=== PATIENT | male | born 1970 | race Caucasian/White ===

== ENCOUNTER 2017-06-27 00:22 | Inpatient (IN) | payer OTHER ==
[2017-06-27 00:32] VITALS: BMI 30.2
--- NOTE | 2017-06-27 01:01 | ED PDOC ---
Arrival/HPI - General Chief Complaint: GI Problem Time Seen by Provider: 06/27/17 00:35 Historian: Patient - History of Present Illness Narrative History of Present Illness (Text): 06/27/17 00:58 Jhonatan Saunders is a 46 year old male, with no significant past medical history, who presents to the Emergency department complaining of intermittent bright red rectal bleeding for the past week. Patient reports associated weakness and lower abdominal discomfort. Patient states he has not had a colonoscopy. Patient denies any fever, chills, chest pain, shortness of breath, nausea, vomiting, neck pain, headache, dizziness, or any other complaint. Time/Duration: 1 week Symptom Onset: Gradual Symptom Course: Unchanged Activities at Onset: Light Context: Home Past Medical History - Provider Review Nursing Documentation Reviewed: Yes - Psychiatric Hx Substance Use: No Family/Social History - Physician Review Nursing Documentation Reviewed: Yes Family/Social History: Unknown Family HX Smoking Status: Never Smoked Hx Alcohol Use: No Hx Substance Use: No Allergies/Home Meds Allergies/Adverse Reactions: Allergies No Known Allergies Allergy (Verified 06/27/17 00:38) Home Medications: Home Meds Medication Instructions Recorded Confirmed No Known Home Med 06/27/17 06/27/17 Review of Systems - Physician Review All systems were reviewed & negative as marked: Yes - Review of Systems Constitutional: Other (+weakness). absent: Fevers Eyes: Normal ENT: Normal Respiratory: Normal. absent: SOB, Cough Cardiovascular: Normal. absent: Chest Pain Gastrointestinal: Abdominal Pain, Hematochezia. absent: Vomiting Genitourinary Male: Normal. absent: Dysuria, Frequency, Hematuria, Urinary Output Changes Musculoskeletal: Normal. absent: Back Pain, Neck Pain Skin: Normal. absent: Rash Neurological: Normal. absent: Headache, Dizziness Endocrine: Normal Hemo/Lymphatic: Normal Psychiatric: Normal Physical Exam Vital Signs Reviewed: Yes Vital Signs Temp Pulse Resp BP Pulse Ox 06/27/17 00:22 98.8 F 83 17 126/80 100 Temperature: Afebrile Blood Pressure: Normal Pulse: Regular Respiratory Rate: Normal Appearance: Positive for: Well-Appearing, Non-Toxic, Comfortable Pain Distress: None Mental Status: Positive for: Alert and Oriented X 3 - Systems Exam Head: Present: Atraumatic, Normocephalic Pupils: Present: PERRL Extroacular Muscles: Present: EOMI Conjunctiva: Present: Normal Mouth: Present: Moist Mucous Membranes Neck: Present: Normal Range of Motion Respiratory/Chest: Present: Clear to Auscultation, Good Air Exchange. No: Respiratory Distress, Accessory Muscle Use Cardiovascular: Present: Regular Rate and Rhythm, Normal S1, S2. No: Murmurs Abdomen: Present: Normal Bowel Sounds. No: Tenderness, Distention, Peritoneal Signs Rectal: No: Occult Blood (Guaiac positive), Gross Blood, Hemorrhoids, Fissures Back: Present: Normal Inspection Upper Extremity: Present: Normal Inspection. No: Cyanosis, Edema Lower Extremity: Present: Normal Inspection. No: Edema Neurological: Present: GCS=15, CN II-XII Intact, Speech Normal Skin: Present: Warm, Dry, Normal Color. No: Rashes Psychiatric: Present: Alert, Oriented x 3, Normal Insight, Normal Concentration Medical Decision Making ED Course and Treatment: 06/27/17 00:58 Impression: 46 year old male complaining of intermittent rectal bleeding, weakness, and lower abdominal discomfort x 1 week. Differential Diagnosis included but are not limited to: anemia vs. GI bleed Plan: -- Labs, lipase, blood type and screen -- Reassess and disposition Progress Notes: 06/27/17 02:15 06/27/17 02:40 Case discussed with medical sonographer supervisor shuttle preparation, who is aware and agrees with plan. 06/27/17 02:[address] Roberts, who is aware and agrees with plan. Accepts pt in to hospitalist service. Pt will go to [facility] observation for GI hemorrhage. - Lab Interpretations Lab Results: 06/27/17 01:15 06/27/17 01:15 Lab Results 06/27/17 01:15: WBC 5.0, RBC 4.46, Hgb 10.8 L, Hct 35.6 L, MCV 79.8 L, MCH 24.2 L, MCHC 30.3 L, RDW 15.0 H, Plt Count 256, MPV 10.6 06/27/17 01:15: Sodium 141, Potassium 3.7, Chloride 106, Carbon Dioxide 24, Anion Gap 15, BUN 14, Creatinine 1.0, Est GFR ( Amer) > 60, Est GFR (Non- Af Amer) > 60, Random Glucose 100, Calcium 9.3, Total Bilirubin 0.4, AST 26, ALT 30, Alkaline Phosphatase 58, Total Protein 7.0, Albumin 4.3, Globulin 2.8, Albumin/Globulin Ratio 1.5, Lipase 173 06/27/17 01:15: PT 10.1, INR 0.94, APTT 29.2 - Medication Orders Current Medication Orders: Sodium Chloride (Sodium Chloride 0.9%) 1,000 mls @ 100 mls/hr IV .Q10H ZIGGY - Scribe Statement The provider has reviewed the documentation as recorded by the Earline Garcia Provider Scribe Attestation: All medical record entries made by the Scribe were at my direction and personally dictated by me. I have reviewed the chart and agree that the record accurately reflects my personal performance of the history, physical exam, medical decision making, and the department course for this patient. I have also personally directed, reviewed, and agree with the discharge instructions and disposition. Disposition/Present on Arrival - Present on Arrival Any Indicators Present on Arrival: No History of DVT/PE: No History of Uncontrolled Diabetes: No Urinary Catheter: No History of Decub. Ulcer: No History Surgical Site Infection Following: None - Disposition Have Diagnosis and Disposition been Completed?: Yes Diagnosis: Lower GI bleed Disposition: HOSPITALIZED Disposition Time: 02:55 Patient Plan: Observation Patient Problems: Current Active Problems Problem Status Onset Lower GI bleed Acute Condition: STABLE Forms: LIF[employer]ODELER (Nepali)
[2017-06-27 01:43] LABS: HEMATOCRIT 35.6 % (42.0-52.0); MEAN CELL VOLUME 79.8 fl (80.0-105.0); MEAN CORPUSCULAR HEMOGLOBIN 24.2 pg (25.0-35.0)
[2017-06-27 01:44] LABS: ALB/GLOB RATIO 1.5 (1.1-1.8); ALKALINE PHOSPHATASE 58 U/L (38-126); ALT/SGPT 30 U/L (7-56); AST/SGOT 26 U/L (17-59); BILIRUBIN,TOTAL 0.4 mg/dL (0.2-1.3); BLOOD UREA NITROGEN 14 mg/dL (7-21); CALCIUM 9.3 mg/dL (8.4-10.5); CARBON DIOXIDE 24 mmol/L (21-33); CHLORIDE 106 mmol/L (98-107); GFR AFRICAN-AMERICAN > 60; GLUCOSE,RANDOM 100 mg/dL (70-110); LIPASE 173 U/L (23-300); MEAN CORPUSCULAR HGB CONC 30.3 g/dl (31.0-37.0); MEAN PLATELET VOLUME 10.6 fl (7.0-11.0); POTASSIUM 3.7 mmol/L (3.6-5.0); SODIUM 141 mmol/L (132-148)
[2017-06-27 01:49] LABS: INR 0.94 (0.93-1.08); PARTIAL THROMBOPLASTIN TIME 29.2 Seconds (23.7-30.8)
[2017-06-27] MEDS: Sodium Chloride 0.9% 1,000 ML IV SCH ×2 (03:15→16:04)
--- NOTE | 2017-06-27 03:58 | CP.PCM.HP ---
<JOSÉ DE LA TORRE - Last Filed: 06/27/17 03:51> History of Present Illness - History of Present Illness History of Present Illness: José De La Torre, PGY1, H&P for Dr. Roberts: CC: bright red rectal bleeding x1 week 46M with no significant PMH presents for hematochezia x1 week. Pt states that he has a history of constipation and straining, he has been passing bright red blood with stools intermittently, for past 1 year, but since past 1 week, the frequency has increased. It is painless, has no associated abdominal pain, rectal pain, n/v/d, epigastric pain, dizziness. Pt reports some associated weakness, denies f/c, cp, sob, neck pain, h/a, urinary symptoms, leg swelling. In ED, Hgb 10.8 (baseline unknown), started on NS@100. Currently, pt states that there is no active bleeding, last episode at 8 PM (hematochezia). Pt denies chronic NSAID use. Sometimes, he uses tylenol for headaches. PMH: denies PSH: neck surgery x2 (2017-3331) ALl: NKA FH: no hx of colon cancer SH: lives with family. Has no PMD because he cannot afford health insurance. Denies Alcohol, tobacco, drug use. Present on Admission - Present on Admission Any Indicators Present on Admission: No History of DVT/PE: No History of Uncontrolled Diabetes: No Urinary Catheter: No Decubitus Ulcer Present: No History Surgical Site Infection Following: None Review of Systems - Review of Systems All systems: reviewed and no additional remarkable complaints except Review of Systems: as per hpi Past Patient History - Past Social History Smoking Status: Never Smoked - PSYCHIATRIC Hx Substance Use: No - SURGICAL HISTORY Hx Surgeries: No Meds Allergies/Adverse Reactions: Allergies Allergy/AdvReac Type Severity Reaction Status Date / Time No Known Allergies Allergy Verified 06/27/17 00:38 Physical Exam - Constitutional Appears: Non-toxic, No Acute Distress, Older Than Stated Age - Head Exam Head Exam: ATRAUMATIC, NORMOCEPHALIC - Eye Exam Eye Exam: EOMI, PERRL. absent: Conjunctival injection, Scleral icterus Pupil Exam: NORMAL ACCOMODATION, PERRL - ENT Exam ENT Exam: Mucous Membranes Moist - Neck Exam Neck exam: Negative for: Lymphadenopathy, Thyromegaly - Respiratory Exam Respiratory Exam: Clear to Auscultation Bilateral, NORMAL BREATHING PATTERN. absent: Accessory Muscle Use, Rales, Rhonchi, Wheezes - Cardiovascular Exam Cardiovascular Exam: RRR, +S1, +S2. absent: Bradycardia, Tachycardia, Systolic Murmur - GI/Abdominal Exam GI & Abdominal Exam: Normal Bowel Sounds, Soft. absent: Distended, Firm, Hernia , Organomegaly, Rebound, Tenderness - Rectal Exam Rectal Exam: Bloody Stool, NORMAL INSPECTION Additional comments: no fissures, mass/tumor palpated. - Extremities Exam Extremities exam: Positive for: pedal pulses present. Negative for: calf tenderness, pedal edema - Neurological Exam Neurological exam: Alert, Oriented x3 - Psychiatric Exam Psychiatric exam: Normal Mood - Skin Skin Exam: Dry, Warm Results - Vital Signs Recent Vital Signs: Last Vital Signs Temp 98.8 F 06/27/17 00:22 Pulse 79 06/27/17 02:22 Resp 17 06/27/17 02:22 BP 125/82 06/27/17 02:22 Pulse Ox 99 06/27/17 02:22 - Labs Result Diagrams: 06/27/17 01:15 06/27/17 01:15 Assessment & Plan - Assessment and Plan (Free Text) Assessment: 46M with no significant PMH, admitted for lower GI bleed, anemia. Plan: Lower GI bleed: - Admit to Med Surg Obs - NPO, IVF @ 100/h, IV protonix, - Type and crossmatch 2 units prbcs - F/u GI c/s - Stool guaic weakly positive in ED - F/u CBC in AM - HAS BLED score 0. Anemia: - HGb 10.8, baseline unknown, f/u anemia workup DVT PPX: SCDs GI PPX: Protonix IV Discussed with Dr Alejandra De La Torre, PGY1 - Date & Time Date: 06/27/17 Time: 04:05 <Alejandra SHOOK,René - Last Filed: 06/27/17 06:38> Results - Vital Signs Recent Vital Signs: Last Vital Signs Temp 98.7 F 06/27/17 03:50 Pulse 80 06/27/17 03:50 Resp 18 06/27/17 03:50 BP 124/80 06/27/17 03:50 Pulse Ox 99 06/27/17 02:22 - Labs Result Diagrams: 06/27/17 01:15 06/27/17 01:15 Labs: Laboratory Results - last 24 hr 06/27/17 06/27/17 03:49 05:00 Blood Type A POSITIVE Blood Type Confirm A POSITIVE Antibody Screen Negative Crossmatch See Detail BBK History Checked Patient has bt Attending/Attestation - Attestation I have personally seen and examined this patient.: Yes I have fully participated in the care of the patient.: Yes I have reviewed all pertinent clinical information: Yes Notes (Text): -I agree with the above H&P completed by the resident physician with the following additions and/or changes: -The patient is a 46 year old man with no mast medical history who presents with intermittent BRBPR for the past one week. He is anemic with a Hbg=10.8 with no prior labs on record for comparison. He was found to be stool occult blood positive without any evidence of hemorrhoids or gross blood on rectal exam. GI has been consulted for evaluation. The patient will likely require an outpatient scope.
[2017-06-27] MEDS ORDERED: Sodium Chloride 0.9% 500 ML IV STA (05:13)
[2017-06-27 07:51] LABS: IRON 26 ug/dL (45-180)
[2017-06-27] MEDS ORDERED: Iohexol 350 MG/100 ML VIAL ONE (11:15)
--- NOTE | 2017-06-27 12:28 | CT ---
PROCEDURE: CT Abdomen and Pelvis with contrast HISTORY: anemia, COMPARISON: None. TECHNIQUE: Contrast dose: 100 cc of Omni 240 Radiation dose: Total exam DLP = 834 mGy-cm. This CT exam was performed using one or more of the following dose reduction techniques: Automated exposure control, adjustment of the mA and/or kV according to patient size, and/or use of iterative reconstruction technique. FINDINGS: LOWER THORAX: Unremarkable. LIVER: Unremarkable. No gross lesion or ductal dilatation. GALLBLADDER AND BILE DUCTS: Unremarkable. PANCREAS: Unremarkable. No gross lesion or ductal dilatation. SPLEEN: Unremarkable. ADRENALS: Unremarkable. No mass. KIDNEYS AND URETERS: There is a nonobstructing 2 mm stone in the right kidney VASCULATURE: Unremarkable. No aortic aneurysm. BOWEL: Unremarkable. No obstruction. No gross mural thickening. APPENDIX: Normal appendix. PERITONEUM: Unremarkable. No free fluid. No free air. LYMPH NODES: Unremarkable. No enlarged lymph nodes. BLADDER: Unremarkable. REPRODUCTIVE: Unremarkable. BONES: No acute fracture. OTHER FINDINGS: None. IMPRESSION: No acute findings
[2017-06-27 12:35] LABS: FOLATE 11.2 ng/mL
[2017-06-27] MEDS ORDERED: Peg-Electrolyte Oral Soln 4L (Golytely) PO ONE (19:35)
[2017-06-27] MEDS: Hydrocortisone 2.5% Rectal Cream(30 gm) PR SCH (19:54)
[2017-06-28 07:09] LABS: BASO # 0.01 K/mm3 (0.0-2.0); BASO % 0.2 % (0.0-3.0); EOS # 0.2 (0.0-0.7); EOS % 4.6 % (1.5-5.0); GRAN # 2.59 (1.4-6.5); GRAN % 56.6 % (50.0-68.0); HEMATOCRIT 33.9 % (42.0-52.0); LYMPH # 1.4 (1.2-3.4); LYMPH % 31.2 % (22.0-35.0); MEAN CELL VOLUME 79.6 fl (80.0-105.0); MEAN CORPUSCULAR HEMOGLOBIN 24.2 pg (25.0-35.0); MEAN CORPUSCULAR HGB CONC 30.4 g/dl (31.0-37.0); MEAN PLATELET VOLUME 9.8 fl (7.0-11.0); MONO # 0.3 (0.1-0.6); MONO % 7.4 % (1.0-6.0); RED CELL DISTRIBUTION WIDTH 14.8 % (11.5-14.5); WHITE BLOOD COUNT 4.6 10^3/ul (4.5-11.0)
--- NOTE | 2017-06-28 07:52 | CON ---
DATE: 06/27/2017 HISTORY OF PRESENT ILLNESS: This patient was seen and evaluated earlier. Discussed with Dr. Pack, hospitalist and the patient's family was at bedside at the time of examination. This 46-year-old patient with a no significant past medical history, noticed bleeding per rectum 3 to 4 episodes, dark maroon blood and bright red blood per rectum 3 to 4 times a day for the past 1 week. He has occasional lower abdominal discomfort he noticed. A year ago, he had some streaks of blood with bowel movement, nothing like this. He was concerned because of this continuity of the bleeding lasting for more than a week. OTHER PAST MEDICAL HISTORY: Nothing. SURGICAL HISTORY: Significant for neck surgery about twice in 2004 and 2006. ALLERGIES: NO KNOWN DRUG ALLERGIES. FAMILY HISTORY: Noncontributory. SOCIAL HISTORY: Denies alcohol or smoking. REVIEW OF SYSTEMS: Positive as above. All other systems reviewed, negative. PHYSICAL EXAMINATION: GENERAL: The patient is lying on the bed, not in acute distress. VITAL SIGNS: Temperature 97.7, blood pressure 117/80, pulse 79, respirations 20 and O2 saturation 99%. HEENT: Atraumatic. Anicteric. NECK: Supple. HEART: S1 and S2 heard. LUNGS: Bilateral air entry present. ABDOMEN: Soft. There is no mass palpable. No tenderness. EXTREMITIES: No edema. RECTAL: Revealed empty rectum, slightly increased anal sphincter tone. LABORATORY DATA: Hemoglobin 10.8, hematocrit 35.6, WBC 5.0 and platelets 256. Chemistry is essentially unremarkable. B12 level is low, 174. His folate level is normal. Ferritin is low, 6. The patient did have a CT scan of the abdomen and pelvis done with p.o. and IV contrast. Interpreted the report as negative. IMPRESSION: This 46-year-old patient with no significant past medical history, admitted with bleeding per rectum for the past one week, and his hemoglobin is significantly low at 10.8, we do not know the baseline. The patient is also found to have B12 deficiency. Clearly, this patient has a malabsorption with a low iron saturation and B12 level. The concern is bleeding per rectum lasting for more than a week. A differential diagnosis for his bleeding should include internal hemorrhoid, colitis, angiodysplasias and even neoplasia to be considered. Upper gastrointestinal source also should be considered, but it is less likely. RECOMMENDATIONS: We would recommend: 1. Followup of the hemoglobin and hematocrit. 2. Clear liquid diet. 3. Request for a celiac disease profile. Because of the B12 level is low, we will request for intrinsic factor and parietal cell antibody. 4. The patient would benefit from colonoscopy to further evaluate the bleeding and also we will consider upper GI endoscopy and small bowel biopsy in view of this B12 deficiency, rule out any celiac disease to evaluate for any pernicious anemia. Would consider upper gastrointestinal endoscopy and colonoscopy tomorrow if the patient agreeable to stay in the hospital. Otherwise, the patient needs to have followup as an outpatient in the GI clinic to have this endoscopic evaluation done. Thank you very much for allowing us to participate in the care of the patient. We will continue to closely follow up his care and suggest further management based on the clinical course. Reynaldo Frost MD
[2017-06-28 08:02] LABS: ALB/GLOB RATIO 1.5 (1.1-1.8); ALKALINE PHOSPHATASE 59 U/L (38-126); ALT/SGPT 30 U/L (7-56); AST/SGOT 40 U/L (17-59); BILIRUBIN,TOTAL 0.7 mg/dL (0.2-1.3); BLOOD UREA NITROGEN 10 mg/dL (7-21); CALCIUM 9.1 mg/dL (8.4-10.5); CARBON DIOXIDE 27 mmol/L (21-33); CHLORIDE 107 mmol/L (98-107); GFR AFRICAN-AMERICAN > 60; GLUCOSE,RANDOM 94 mg/dL (70-110); POTASSIUM 3.7 mmol/L (3.6-5.0); SODIUM 141 mmol/L (132-148); TOTAL PROTEIN 6.4 g/dL (5.8-8.3)
[2017-06-28] MEDS: Sodium Chloride 0.9% 1,000 ML IV SCH (09:11)
[2017-06-28] MEDS: Hydrocortisone 2.5% Rectal Cream(30 gm) PR SCH (09:12)
--- NOTE | 2017-06-28 11:50 | CP.PCM.PN ---
<JacquelinBakari - Last Filed: 06/28/17 17:58> Subjective - Date & Time of Evaluation Date of Evaluation: 06/28/17 Time of Evaluation: 09:47 - Subjective Subjective: Patient was seen and examined at bedside. The patient is still reporting some abdominal pain located throughout the abdomen and rating the pain a 4/10 in severity. The patient denies any bowel movement since yesterday. The patient began the bowel prep Golytely for the proposed Colonoscopy later on today. The patient was also getting 1 Unit of Venofer. The patient denies any chest pain, shortness of breath, nausea, vomiting, lightheadedness, dizziness, or any other complaints. Objective - Vital Signs/Intake and Output Vital Signs (last 24 hours): Temp Pulse Resp BP Pulse Ox 98.3 F 73 18 115/76 98 06/28/17 08:37 06/28/17 08:37 06/28/17 08:37 06/28/17 08:37 06/28/17 08:37 Intake and Output: 06/28/17 06/28/17 06:59 18:59 Intake Total 2019 Balance 2020 - Medications Medications: Current Medications Cyanocobalamin (Vitamin B12 1000 Mcg Tab) 1,000 mcg PO DAILY [facility] Last Admin: 06/28/17 09:11 Dose: 1,000 mcg Hydrocortisone (Anusol-Hc) 1 gm ID BID ZIGGY Last Admin: 06/28/17 09:12 Dose: 1 appful Sodium Chloride (Sodium Chloride 0.9%) 1,000 mls @ 100 mls/hr IV .Q10H ZIGGY Last Admin: 06/28/17 09:11 Dose: 100 mls/hr Pantoprazole Sodium (Protonix Inj) 40 mg IVP Q12 ZIGGY Last Admin: 06/28/17 09:10 Dose: 40 mg - Labs Labs: 06/28/17 06:53 06/28/17 06:53 PT 10.1 Seconds (9.9-11.8) 06/27/17 01:15 INR 0.94 (0.93-1.08) 06/27/17 01:15 APTT 29.2 Seconds (23.7-30.8) 06/27/17 01:15 - Head Exam Head Exam: ATRAUMATIC, NORMAL INSPECTION, NORMOCEPHALIC - Eye Exam Eye Exam: EOMI, Normal appearance, PERRL Pupil Exam: NORMAL ACCOMODATION, PERRL - ENT Exam ENT Exam: Mucous Membranes Moist - Neck Exam Neck Exam: Normal Inspection - Respiratory Exam Respiratory Exam: Clear to Ausculation Bilateral, NORMAL BREATHING PATTERN. absent: Accessory Muscle Use, Chest Wall Tenderness, Rales, Rhonchi - Cardiovascular Exam Cardiovascular Exam: REGULAR RHYTHM, RRR, +S1, +S2. absent: Gallop, Rubs - GI/Abdominal Exam GI & Abdominal Exam: Soft, Tenderness (noted in all quadrants in abdomen. Very little appreciated.), Normal Bowel Sounds. absent: Guarding, Rigid, Organomegaly - Extremities Exam Extremities Exam: Full ROM. absent: Tenderness - Back Exam Back Exam: NORMAL INSPECTION. absent: paraspinal tenderness - Neurological Exam Neurological Exam: Alert, Awake, CN II-XII Intact, Oriented x3 - Psychiatric Exam Psychiatric exam: Normal Affect, Normal Mood - Skin Skin Exam: Dry, Intact, Normal Color Assessment and Plan - Assessment and Plan (Free Text) Assessment: 46M with no significant PMH, admitted for lower GI bleed, anemia. Plan: Lower GI bleed: - Admit to Med Surg Obs - NPO, IVF @ 100/h, IV protonix, - Type and crossmatch 2 units prbcs - Stool guaic weakly positive in ED - HAS BLED score 0. -GI consult appreciated. Consider Celiac Disease profile pending Colonoscopy report. -Patient began bowel prep (Golytely) for Colonoscopy scheduled for today. F/U with Colonoscopy report. Anemia: - HGb 10.3(down from) 10.8, baseline unknown -Patient given 1 Unit of Venofer. -Will continue to monitor H/H with serial CBC's. DVT PPX: Continue SCDs GI PPX:Continue Protonix IV <Brian Pack - Last Filed: 06/29/17 14:15> Objective - Vital Signs/Intake and Output Vital Signs (last 24 hours): Temp Pulse Resp BP Pulse Ox 98.4 F 84 18 105/64 98 06/29/17 08:24 06/29/17 08:24 06/29/17 08:24 06/29/17 08:24 06/29/17 08:24 - Medications Medications: Current Medications Cyanocobalamin (Vitamin B12 1000 Mcg Tab) 1,000 mcg PO DAILY [facility]IG[facility] Last Admin: 06/29/17 09:04 Dose: 1,000 mcg Hydrocortisone (Anusol-Hc) 1 gm ID BID ZIGGY Last Admin: 06/29/17 09:04 Dose: 1 appful Sodium Chloride (Sodium Chloride 0.9%) 1,000 mls @ 100 mls/hr IV .Q10H ZIGGY Last Admin: 06/28/17 09:11 Dose: 100 mls/hr Pantoprazole Sodium (Protonix Inj) 40 mg IVP Q12 ZIGGY Last Admin: 06/29/17 09:04 Dose: 40 mg - Labs Labs: PT 10.1 Seconds (9.9-11.8) 06/27/17 01:15 INR 0.94 (0.93-1.08) 06/27/17 01:15 APTT 29.2 Seconds (23.7-30.8) 06/27/17 01:15 Attending/Attestation - Attestation I have personally seen and examined this patient.: Yes I have fully participated in the care of the patient.: Yes I have reviewed all pertinent clinical information, including history, physical exam and plan: Yes Notes (Text): 06/29/17 14:09 attending note; Patient seen and examined with resident. Patient is a 46-year-old male admitted with melena and iron deficiency anemia. patient was also found to have B12 deficiency. awaiting Colonoscopy today. addendum; Flexible endoscopy/EGD done by GI Dr. Benoit. Found to have 8 cm rectal mass. Biopsy taken. Oncology/surgery evaluation requested. needs staging. Await pathology results. the possible diagnosis and workup and treatment options discussed with patient in detail.
[2017-06-28] MEDS ORDERED: Propofol 10 mg/ml Inj (20 ML) ONE (16:01)
[2017-06-28] MEDS ORDERED: Sodium Chloride 0.9% 1,000 ML IV SCH (16:15)
--- NOTE | 2017-06-28 22:42 | CP.PCM.CON ---
History of Present Illness - History of Present Illness History of Present Illness: General Surgery Consult Re: Rectal mass HPI: 46M presented for hematochezia x 1 week and he has been passing bright red blood with stools intermittently for 1 year. Pt had a colonoscopy today and was found to have a circumferential rectal mass at ~8cm. Biopsy was taken. Pt reports weakness, unintentional weight loss in the last 5 months, and decreased caliber of stool. Pt never had colonoscopy prior to this. PMH: Denies PSH: neck surgery x2 ([id number]) FH: No hx of colon cancer, Father had "back bumps" removed in his 60s SH: Denies EtOH, tobacco, and drug use. All: NKDA Meds: Denies Review of Systems - Review of Systems All systems: reviewed and no additional remarkable complaints except (as per HPI ) Past Patient History - Past Social History Smoking Status: Never Smoked - CARDIAC Hx Cardiac Disorders: No - PULMONARY Hx Respiratory Disorders: No - NEUROLOGICAL Hx Neurological Disorder: No - HEMATOLOGICAL/ONCOLOGICAL Hx Blood Transfusions: No Hx Blood Transfusion Reaction: No - MUSCULOSKELETAL/RHEUMATOLOGICAL Hx Falls: No - PSYCHIATRIC Hx Substance Use: No - SURGICAL HISTORY Hx Surgeries: No - ANESTHESIA Hx Anesthesia Reactions: No Hx Malignant Hyperthermia: No Meds Home Medications: Home Medication List Medication Instructions Recorded Confirmed Type Cyanocobalamin [Vitamin B12 1000 1,000 mcg PO DAILY #30 tab 06/28/17 Rx mcg Tab] Hydrocortisone 2.5% (Rectal) 1 gm [place] BID #1 tub 06/28/17 Rx [Anusol-Hc] Allergies/Adverse Reactions: Allergies Allergy/AdvReac Type Severity Reaction Status Date / Time No Known Allergies Allergy Verified 06/27/17 00:38 - Medications Medications: Current Medications Cyanocobalamin (Vitamin B12 1000 Mcg Tab) 1,000 mcg PO DAILY [facility] Last Admin: 06/28/17 09:11 Dose: 1,000 mcg Hydrocortisone (Anusol-Hc) 1 gm [place] BID [facility] Last Admin: 06/28/17 09:12 Dose: 1 appful Sodium Chloride (Sodium Chloride 0.9%) 1,000 mls @ 100 mls/hr IV .Q10H [facility] Last Admin: 06/28/17 09:11 Dose: 100 mls/hr Pantoprazole Sodium (Protonix Inj) 40 mg IVP Q12 [facility] Last Admin: 06/28/17 21:27 Dose: 40 mg Physical Exam - Constitutional Appears: Non-toxic, No Acute Distress - Head Exam Head Exam: ATRAUMATIC, NORMOCEPHALIC - Eye Exam Eye Exam: EOMI. absent: Scleral icterus - ENT Exam ENT Exam: Mucous Membranes Moist Additional comments: trachea midline - Neck Exam Neck exam: Positive for: Full Rom - Respiratory Exam Respiratory Exam: NORMAL BREATHING PATTERN. absent: Respiratory Distress - Cardiovascular Exam Cardiovascular Exam: RRR, +S1, +S2 - GI/Abdominal Exam GI & Abdominal Exam: Soft. absent: Distended, Tenderness - Rectal Exam Additional comments: Pt had a difficult time relaxing during exam. Met fleshy resistance around 6- 7cm. upon having pt bearing down, a small space opened but digit was too large to try to pass through. unable to feel prostate - Extremities Exam Extremities exam: Negative for: calf tenderness, pedal edema - Back Exam Back exam: absent: CVA tenderness (L), CVA tenderness (R) - Neurological Exam Neurological exam: Alert, Oriented x3 - Skin Skin Exam: Dry, Warm Results - Vital Signs Recent Vital Signs: Last Vital Signs Temp 98.3 F 06/28/17 17:46 Pulse 80 06/28/17 17:46 Resp 16 06/28/17 17:46 BP 124/82 06/28/17 17:46 Pulse Ox 99 06/28/17 17:46 - Labs Result Diagrams: 06/28/17 06:53 06/28/17 06:53 Labs: Laboratory Results - last 24 hr 06/28/17 06/28/17 06:53 06:53 WBC 4.6 RBC 4.26 Hgb 10.3 L Hct 33.9 L MCV 79.6 L MCH 24.2 L MCHC 30.4 L RDW 14.8 H Plt Count 247 MPV 9.8 Gran % 56.6 Lymph % (Auto) 31.2 [place] % (Auto) 7.4 H Eos % (Auto) 4.6 Baso % (Auto) 0.2 Gran # 2.59 Lymph # 1.4 [place] # 0.3 Eos # 0.2 Baso # 0.01 Sodium 141 Potassium 3.7 Chloride 107 Carbon Dioxide 27 Anion Gap 11 BUN 10 Creatinine 1.0 Est GFR ( Amer) > 60 Est GFR (Non-Af Amer) > 60 Random Glucose 94 Calcium 9.1 Total Bilirubin 0.7 AST 40 ALT 30 Alkaline Phosphatase 59 Total Protein 6.4 Albumin 3.8 Globulin 2.6 Albumin/Globulin Ratio 1.5 Assessment & Plan - Assessment and Plan (Free Text) Assessment: 46M with newly found rectal mass Plan: F/U biopsy results Heme/onc on consult for staging/treatment Surgery possible in future, after treatment if amenable. Will D/W Dr. Alicia Maharaj PGY4
[2017-06-29] MEDS: Hydrocortisone 2.5% Rectal Cream(30 gm) PR SCH ×2 (09:04→18:31)
--- NOTE | 2017-06-29 09:45 | CP.PCM.PN ---
<JacquelinJosefinan - Last Filed: 06/29/17 09:45> Subjective - Date & Time of Evaluation Date of Evaluation: 06/29/17 Time of Evaluation: 07:42 - Subjective Subjective: Patient was seen and examined at bedside. The patient continues to report some LLQ and RLQ pain that doesn't radiate. The patient rates the pain a 5/10 in severity. Per nursing the patient refused blood work this morning. Patient denies any chest pain, shortness of breath, nausea, vomiting, lightheaded, dizziness, or any other complaints. Objective - Vital Signs/Intake and Output Vital Signs (last 24 hours): Temp Pulse Resp BP Pulse Ox 98.4 F 84 18 105/64 98 06/29/17 08:24 06/29/17 08:24 06/29/17 08:24 06/29/17 08:24 06/29/17 08:24 Intake and Output: 06/29/17 06/29/17 06:59 18:59 Intake Total 480 Balance 480 - Medications Medications: Current Medications Cyanocobalamin (Vitamin B12 1000 Mcg Tab) 1,000 mcg PO DAILY [facility] Last Admin: 06/29/17 09:04 Dose: 1,000 mcg Hydrocortisone (Anusol-Hc) 1 gm [place] BID [facility] Last Admin: 06/29/17 09:04 Dose: 1 appful Sodium Chloride (Sodium Chloride 0.9%) 1,000 mls @ 100 mls/hr IV .Q10H [facility] Last Admin: 06/28/17 09:11 Dose: 100 mls/hr Pantoprazole Sodium (Protonix Inj) 40 mg IVP Q12 [facility] Last Admin: 06/29/17 09:04 Dose: 40 mg - Labs Labs: 06/28/17 06:53 06/28/17 06:53 PT 10.1 Seconds (9.9-11.8) 06/27/17 01:15 INR 0.94 (0.93-1.08) 06/27/17 01:15 APTT 29.2 Seconds (23.7-30.8) 06/27/17 01:15 - Head Exam Head Exam: ATRAUMATIC, NORMAL INSPECTION, NORMOCEPHALIC - Eye Exam Eye Exam: EOMI, Normal appearance, PERRL Pupil Exam: NORMAL ACCOMODATION, PERRL - ENT Exam ENT Exam: Mucous Membranes Moist - Neck Exam Neck Exam: Normal Inspection. absent: Tenderness - Respiratory Exam Respiratory Exam: Clear to Ausculation Bilateral, NORMAL BREATHING PATTERN. absent: Accessory Muscle Use, Chest Wall Tenderness, Rales, Rhonchi - Cardiovascular Exam Cardiovascular Exam: REGULAR RHYTHM, RRR, +S1, +S2. absent: Rubs - GI/Abdominal Exam GI & Abdominal Exam: Soft, Tenderness (rlq and llq pain upon palpation.), Normal Bowel Sounds. absent: Rigid, Organomegaly - Extremities Exam Extremities Exam: Full ROM. absent: Tenderness - Back Exam Back Exam: NORMAL INSPECTION. absent: paraspinal tenderness - Neurological Exam Neurological Exam: Alert, Awake, CN II-XII Intact - Psychiatric Exam Psychiatric exam: Normal Affect, Normal Mood. absent: Depressed - Skin Skin Exam: Dry, Intact Assessment and Plan - Assessment and Plan (Free Text) Assessment: 46M with no significant PMH, admitted for lower GI bleed, anemia. Plan: Lower GI bleed: - Admit to Med Surg Obs - NPO, IVF @ 100/h, IV protonix, - Type and crossmatch 2 units prbcs - Stool guaic weakly positive in ED - HAS BLED score 0. -GI consult appreciated. -Colonoscopy showed a rectal mass most likely ca. Heme/Onc consult is pending. Anemia: - HGb 10.3(down from) 10.8, baseline unknown -Patient given 1 Unit of Venofer. -Will continue to monitor H/H with serial CBC's. DVT PPX: Continue SCDs GI PPX:Continue Protonix IV <Brian Pack - Last Filed: 06/30/17 14:44> Objective - Vital Signs/Intake and Output Vital Signs (last 24 hours): Temp Pulse Resp BP Pulse Ox 98.3 F 79 20 117/76 99 06/30/17 10:56 06/30/17 10:56 06/30/17 10:56 06/30/17 10:56 06/30/17 10:56 Intake and Output: 06/30/17 06/30/17 06:59 18:59 Intake Total 600 Balance 600 - Medications Medications: Current Medications Cyanocobalamin (Vitamin B12 1000 Mcg Tab) 1,000 mcg PO DAILY [facility] Last Admin: 06/30/17 09:35 Dose: 1,000 mcg Hydrocortisone (Anusol-Hc) 1 gm [place] BID [facility] Last Admin: 06/30/17 13:36 Dose: Not Given Sodium Chloride (Sodium Chloride 0.9%) 1,000 mls @ 100 mls/hr IV .Q10H [facility] Last Admin: 06/30/17 12:02 Dose: 100 mls/hr Pantoprazole Sodium (Protonix Inj) 40 mg IVP Q12 [facility] Last Admin: 06/30/17 09:34 Dose: 40 mg - Labs Labs: 06/30/17 06:52 06/30/17 08:00 PT 10.1 Seconds (9.9-11.8) 06/27/17 01:15 INR 0.94 (0.93-1.08) 06/27/17 01:15 APTT 29.2 Seconds (23.7-30.8) 06/27/17 01:15 Attending/Attestation - Attestation I have personally seen and examined this patient.: Yes I have fully participated in the care of the patient.: Yes I have reviewed all pertinent clinical information, including history, physical exam and plan: Yes Notes (Text): 06/30/17 14:41 attending note; Patient seen and examined with resident. Patient is a 46-year-old male admitted with melena and iron deficiency anemia. patient was also found to have B12 deficiency. s/p Colonoscopy. Flexible endoscopy/EGD done by GI Dr. Benoit. Found to have 8 cm rectal mass. Oncology evaluation with appreciated. surgery evaluation appreciated . Case discussed with radiation oncologist Dr. Kirkland in detail. Dr. Benoit will do endoscopic ultrasound for staging. MRI ordered. Await pathology results. the possible diagnosis and workup and treatment options discussed with patient in detail.
--- NOTE | 2017-06-29 09:52 | CP.PCM.PN ---
Subjective - Date & Time of Evaluation Date of Evaluation: 06/29/17 Time of Evaluation: 09:49 - Subjective Subjective: General Surgery Progress note for Dr. Vargas PT S&E at bedside. Patient admits to pain in left lower quadrant and right lower quadrant and the feeling of gas. Patient denies F/C, N/V. CP SOB. Objective - Vital Signs/Intake and Output Vital Signs (last 24 hours): Temp Pulse Resp BP Pulse Ox 98.4 F 84 18 105/64 98 06/29/17 08:24 06/29/17 08:24 06/29/17 08:24 06/29/17 08:24 06/29/17 08:24 Intake and Output: 06/29/17 06/29/17 06:59 18:59 Intake Total 480 Balance 480 - Medications Medications: Current Medications Cyanocobalamin (Vitamin B12 1000 Mcg Tab) 1,000 mcg PO DAILY [facility] Last Admin: 06/29/17 09:04 Dose: 1,000 mcg Hydrocortisone (Anusol-Hc) 1 gm [place] BID [facility] Last Admin: 06/29/17 09:04 Dose: 1 appful Sodium Chloride (Sodium Chloride 0.9%) 1,000 mls @ 100 mls/hr IV .Q10H [facility] Last Admin: 06/28/17 09:11 Dose: 100 mls/hr Pantoprazole Sodium (Protonix Inj) 40 mg IVP Q12 [facility] Last Admin: 06/29/17 09:04 Dose: 40 mg - Labs Labs: 06/28/17 06:53 06/28/17 06:53 PT 10.1 Seconds (9.9-11.8) 06/27/17 01:15 INR 0.94 (0.93-1.08) 06/27/17 01:15 APTT 29.2 Seconds (23.7-30.8) 06/27/17 01:15 - Constitutional Appears: Non-toxic - Head Exam Head Exam: NORMAL INSPECTION - Eye Exam Eye Exam: EOMI, Normal appearance - ENT Exam ENT Exam: Mucous Membranes Moist - Neck Exam Neck Exam: Full ROM - Respiratory Exam Respiratory Exam: Clear to Ausculation Bilateral, NORMAL BREATHING PATTERN. absent: Accessory Muscle Use, Respiratory Distress - Cardiovascular Exam Cardiovascular Exam: REGULAR RHYTHM. absent: Bradycardia, Tachycardia - GI/Abdominal Exam GI & Abdominal Exam: Soft, Tenderness. absent: Organomegaly, Pulsatile Mass, Rebound - Neurological Exam Neurological Exam: Alert, Awake, Oriented x3 - Psychiatric Exam Psychiatric exam: Anxious, Normal Affect Additional comments: patient appears to be withdrawn - Skin Skin Exam: Dry, Intact, Normal Color, Warm Assessment and Plan - Assessment and Plan (Free Text) Assessment: 46M with newly found rectal mass Plan: monitor H/Hs c/w medical management f/u Heme/onc recommendations f/u biopsy results consider Surgery in the future, after treatment if amenable. d/w Dr. Alicia Ball, DO PGY1
[2017-06-29] MEDS ORDERED: Iohexol 350 MG/100 ML VIAL ONE (10:56)
--- NOTE | 2017-06-29 11:52 | CP.PCM.CON ---
History of Present Illness - History of Present Illness History of Present Illness: 46 year old male with a history of chronic hematochezia admitted with fatigue and worsening hematochezia, found to have a rectal mass concerning for malignancy. The patient reports to noticing hematchezia about 1 year ago which he described as mild and intermittent. This progressed in the last week to large amounts of blood with straining during bowel movements. The amount of bleeding concerned him and he came to the hospital. Colonoscopy revealed a partially obstructing rectal mass concerning for malignancy. CT chest without contrast and CT abdomen and pelvis with PO + IV contrast did not reveal evidence of distant metastasis. Past medical history: None Past surgical history: Lipoma excision from neck Family history: Father had unknown cancer Social history: Denies tobacco, alcohol, and illicit drug use. Works as a tailor. Allergies: NKA Review of systems: All remaining review of systems including HEENT, cardiovascular, respiratory, gastrointestinal, genitourinary, musculoskeletal, dermatologic, neurologic, and psychiatric are negative unless mentioned in the HPI. Past Patient History - Past Social History Smoking Status: Never Smoked - CARDIAC Hx Cardiac Disorders: No - PULMONARY Hx Respiratory Disorders: No - NEUROLOGICAL Hx Neurological Disorder: No - HEMATOLOGICAL/ONCOLOGICAL Hx Blood Transfusions: No Hx Blood Transfusion Reaction: No - MUSCULOSKELETAL/RHEUMATOLOGICAL Hx Falls: No - PSYCHIATRIC Hx Substance Use: No - SURGICAL HISTORY Hx Surgeries: No - ANESTHESIA Hx Anesthesia Reactions: No Hx Malignant Hyperthermia: No Meds Home Medications: Home Medication List Medication Instructions Recorded Confirmed Type Cyanocobalamin [Vitamin B12 1000 1,000 mcg PO DAILY #30 tab 06/28/17 Rx mcg Tab] Hydrocortisone 2.5% (Rectal) 1 gm [place] BID #1 tub 06/28/17 Rx [Anusol-Hc] Allergies/Adverse Reactions: Allergies Allergy/AdvReac Type Severity Reaction Status Date / Time No Known Allergies Allergy Verified 06/27/17 00:38 - Medications Medications: Current Medications Cyanocobalamin (Vitamin B12 1000 Mcg Tab) 1,000 mcg PO DAILY [facility] Last Admin: 06/29/17 09:04 Dose: 1,000 mcg Hydrocortisone (Anusol-Hc) 1 gm [place] BID [facility] Last Admin: 06/29/17 09:04 Dose: 1 appful Sodium Chloride (Sodium Chloride 0.9%) 1,000 mls @ 100 mls/hr IV .Q10H [facility] Last Admin: 06/28/17 09:11 Dose: 100 mls/hr Pantoprazole Sodium (Protonix Inj) 40 mg IVP Q12 [facility] Last Admin: 06/29/17 09:04 Dose: 40 mg Physical Exam - Head Exam Head Exam: ATRAUMATIC - Eye Exam Eye Exam: Normal appearance - ENT Exam ENT Exam: Mucous Membranes Dry - Respiratory Exam Respiratory Exam: NORMAL BREATHING PATTERN - Cardiovascular Exam Cardiovascular Exam: +S1, +S2 - GI/Abdominal Exam GI & Abdominal Exam: Normal Bowel Sounds - Extremities Exam Extremities exam: Positive for: normal inspection - Psychiatric Exam Psychiatric exam: Normal Affect, Normal Mood - Skin Skin Exam: Warm Results - Vital Signs Recent Vital Signs: Last Vital Signs Temp 98.4 F 06/29/17 08:24 Pulse 84 06/29/17 08:24 Resp 18 06/29/17 08:24 BP 105/64 06/29/17 08:24 Pulse Ox 98 06/29/17 08:24 - Labs Result Diagrams: 06/30/17 06:52 06/30/17 08:00 Labs: Laboratory Results - last 24 hr 06/29/17 10:26 POC Glucose (mg/dL) 186 H Assessment & Plan (1) Anemia Assessment and Plan: B12 and iron deficiency on oral B12 and will start IV Venofer ?GI inflammatory disease causing B12 deficiency chronic GI blood loss from tumor likely causing iron deficiency Status: Acute (2) Rectal mass Assessment and Plan: concerning for malignancy f/u biopsy pelvic MRI +/- rectal EUS to complete staging radiation oncologic evaluation further treatment recommendations based on pathology and staging. Thank you for this interesting consult. Status: Acute
--- NOTE | 2017-06-29 12:33 | CT ---
PROCEDURE: CT Chest without contrast HISTORY: r/o mets COMPARISON: None. TECHNIQUE: Contiguous axial images were obtained through the chest without intravenous contrast enhancement. Sagittal and coronal reconstructions were performed. Radiation dose (DLP): 441 mGy-cm. This CT exam was performed using one or more of the following dose reduction techniques: Automated exposure control, adjustment of the mA and/or kV according to patient size, and/or use of iterative reconstruction technique. FINDINGS: LUNGS: Clear lungs. Visualized airway clear. MEDIASTINUM: Unremarkable thoracic aorta. No aneurysm. Normal sized heart. Main pulmonary artery unremarkable. No vascular congestion. No lymphadenopathy. PLEURA: No pleural fluid. No pneumothorax. BONES: No fracture. No destructive lesion. UPPER ABDOMEN: Grossly unremarkable. OTHER FINDINGS: None. IMPRESSION: Unremarkable non-contrast enhanced CT of the chest. No evidence of metastatic disease
--- NOTE | 2017-06-29 13:28 | CP.PCM.CON ---
History of Present Illness - History of Present Illness History of Present Illness: Mr Saunders is a 46 year old male with a locally advanced rectal cancer. For the past year, he has been having issues with constipation and straining. He thought it was related to his diet. He has also had red blood in his stools which has recently worsened. On admission, he was found to be mildly anemia. A CT of the abdomen and pelvis on June 27, 2017 was negative. On June 28, 2017, he had a colonoscopy which revealed an ulcerated, circumferential rectal mass that was partially obstructed. A biopsy was performed which is pending. Review of Systems - Constitutional Constitutional: Weight Loss - Gastrointestinal Gastrointestinal: Constipation, Cramping, Diarrhea, Hematochezia Past Patient History - Past Social History Smoking Status: Never Smoked Alcohol: None Home Situation {Lives}: With Family - CARDIAC Hx Cardiac Disorders: No - PULMONARY Hx Respiratory Disorders: No - NEUROLOGICAL Hx Neurological Disorder: No - HEMATOLOGICAL/ONCOLOGICAL Hx Blood Transfusions: No Hx Blood Transfusion Reaction: No - MUSCULOSKELETAL/RHEUMATOLOGICAL Hx Falls: No - PSYCHIATRIC Hx Substance Use: No - SURGICAL HISTORY Hx Surgeries: No - ANESTHESIA Hx Anesthesia Reactions: No Hx Malignant Hyperthermia: No Meds Home Medications: Home Medication List Medication Instructions Recorded Confirmed Type Cyanocobalamin [Vitamin B12 1000 1,000 mcg PO DAILY #30 tab 06/28/17 Rx mcg Tab] Hydrocortisone 2.5% (Rectal) 1 gm [place] BID #1 tub 06/28/17 Rx [Anusol-Hc] Allergies/Adverse Reactions: Allergies Allergy/AdvReac Type Severity Reaction Status Date / Time No Known Allergies Allergy Verified 06/27/17 00:38 - Medications Medications: Current Medications Cyanocobalamin (Vitamin B12 1000 Mcg Tab) 1,000 mcg PO DAILY [facility] Last Admin: 06/29/17 09:04 Dose: 1,000 mcg Hydrocortisone (Anusol-Hc) 1 gm [place] BID [facility] Last Admin: 06/29/17 09:04 Dose: 1 appful Sodium Chloride (Sodium Chloride 0.9%) 1,000 mls @ 100 mls/hr IV .Q10H [facility] Last Admin: 06/28/17 09:11 Dose: 100 mls/hr Pantoprazole Sodium (Protonix Inj) 40 mg IVP Q12 [facility] Last Admin: 06/29/17 09:04 Dose: 40 mg Physical Exam - Head Exam Head Exam: NORMAL INSPECTION - Eye Exam Eye Exam: EOMI - Respiratory Exam Respiratory Exam: Clear to Auscultation Bilateral - Cardiovascular Exam Cardiovascular Exam: REGULAR RHYTHM - GI/Abdominal Exam GI & Abdominal Exam: Normal Bowel Sounds - Rectal Exam Additional comments: good sphincter tone. Mucosal tenderness and narrowing 3-4cm from AV Results - Vital Signs Recent Vital Signs: Last Vital Signs Temp 98.4 F 06/29/17 08:24 Pulse 84 06/29/17 08:24 Resp 18 06/29/17 08:24 BP 105/64 06/29/17 08:24 Pulse Ox 98 06/29/17 08:24 - Labs Result Diagrams: 06/28/17 06:53 06/28/17 06:53 Labs: Laboratory Results - last 24 hr 06/29/17 10:26 POC Glucose (mg/dL) 186 H Assessment & Plan - Assessment and Plan (Free Text) Assessment: Mr Saunders is a 46 year old male with a locally advanced rectal cancer. He would most likely benefit from preoperative chemoradiation followed by surgery. He was evaluated by surgery. He will need to complete his staging work-up including an endorectal ultrasound to know the tumor and dayana status of his disease. Also, the EUS will tell us the proximal and distal extent of his tumor. We are waiting the pathology from his biopsy for pathologic confirmation. We spoke to him about the risks and benefits of radiation therapy. For locally advanced disease, there is a benefit to neoadjuvant therapy for locoregional control and survival. If feasible, he will need a CT/ Pet with his radiation simulation for planning purposes. The PET can only be performed as an outpatient. We will schedule his simulation once we have his pathology and staging completed. We will also coordinate his treatment with Dr Denis.
[2017-06-29 14:23] LABS: BASO # 0.01 K/mm3 (0.0-2.0); BASO % 0.2 % (0.0-3.0); EOS % 0.6 % (1.5-5.0); GRAN # 3.74 (1.4-6.5); HEMATOCRIT 36.8 % (42.0-52.0); LYMPH % 20.3 % (22.0-35.0); MEAN CELL VOLUME 79.3 fl (80.0-105.0); MEAN CORPUSCULAR HEMOGLOBIN 24.4 pg (25.0-35.0); MEAN CORPUSCULAR HGB CONC 30.7 g/dl (31.0-37.0); MEAN PLATELET VOLUME 9.7 fl (7.0-11.0); MONO # 0.3 (0.1-0.6); MONO % 5.9 % (1.0-6.0); RED CELL DISTRIBUTION WIDTH 14.7 % (11.5-14.5); WHITE BLOOD COUNT 5.1 10^3/ul (4.5-11.0)
[2017-06-29 14:31] LABS: ALB/GLOB RATIO 1.6 (1.1-1.8); ALKALINE PHOSPHATASE 65 U/L (38-126); ALT/SGPT 25 U/L (7-56); AST/SGOT 21 U/L (17-59); BILIRUBIN,TOTAL 0.5 mg/dL (0.2-1.3); BLOOD UREA NITROGEN 7 mg/dL (7-21); CALCIUM 9.4 mg/dL (8.4-10.5); CARBON DIOXIDE 23 mmol/L (21-33); CHLORIDE 105 mmol/L (98-107); GFR AFRICAN-AMERICAN > 60; GLUCOSE,RANDOM 130 mg/dL (70-110); POTASSIUM 3.5 mmol/L (3.6-5.0); SODIUM 139 mmol/L (132-148)
--- NOTE | 2017-06-29 15:39 | CP.PCM.PN ---
<Jennifer Bowling - Last Filed: 06/29/17 15:37> Subjective - Date & Time of Evaluation Date of Evaluation: 06/29/17 Time of Evaluation: 09:20 - Subjective Subjective: Seen and examined at the bedside earlier today, status post EGD, found to have gastritis biopsies were obtained, flexible sigmoidoscopy done found to have ulcerated rectal obstructing mass lesion 8 cm times into the rectum. The patient denies nausea, vomiting although yesterday he had episode of dizziness and weakness but symptoms resolved, patient did not inform nursing staff. No new complaints this morning, no further reports of bleeding. Son at the bedside Objective - Vital Signs/Intake and Output Vital Signs (last 24 hours): Temp Pulse Resp BP Pulse Ox 98.4 F 84 18 105/64 98 06/29/17 08:24 06/29/17 08:24 06/29/17 08:24 06/29/17 08:24 06/29/17 08:24 - Medications Medications: Current Medications Cyanocobalamin (Vitamin B12 1000 Mcg Tab) 1,000 mcg PO DAILY [facility] Last Admin: 06/29/17 09:04 Dose: 1,000 mcg Hydrocortisone (Anusol-Hc) 1 gm [place] BID [facility] Last Admin: 06/29/17 09:04 Dose: 1 appful Sodium Chloride (Sodium Chloride 0.9%) 1,000 mls @ 100 mls/hr IV .Q10H [facility] Last Admin: 06/28/17 09:11 Dose: 100 mls/hr Pantoprazole Sodium (Protonix Inj) 40 mg IVP Q12 [facility] Last Admin: 06/29/17 09:04 Dose: 40 mg - Labs Labs: 06/29/17 14:08 06/29/17 14:08 PT 10.1 Seconds (9.9-11.8) 06/27/17 01:15 INR 0.94 (0.93-1.08) 06/27/17 01:15 APTT 29.2 Seconds (23.7-30.8) 06/27/17 01:15 - Constitutional Appears: No Acute Distress - Head Exam Head Exam: NORMOCEPHALIC - Eye Exam Eye Exam: Normal appearance. absent: Scleral icterus - ENT Exam ENT Exam: Mucous Membranes Moist - Neck Exam Neck Exam: Normal Inspection - Respiratory Exam Respiratory Exam: Clear to Ausculation Bilateral, NORMAL BREATHING PATTERN. absent: Respiratory Distress - Cardiovascular Exam Cardiovascular Exam: +S1, +S2 - GI/Abdominal Exam GI & Abdominal Exam: Soft, Hyperactive Bowel Sounds. absent: Guarding, Tenderness, Organomegaly, Rebound - Extremities Exam Extremities Exam: Normal Capillary Refill. absent: Calf Tenderness, Pedal Edema - Neurological Exam Neurological Exam: Alert, Awake, Oriented x3 - Skin Skin Exam: Dry, Warm Assessment and Plan - Assessment and Plan (Free Text) Assessment: Assessment: GI bleed Ulcerated obstructing rectal mass lesion Gastritis Rule out celiac disease, rule out H. pylori Vitamin B12 deficiency Plan: Clear liquid diet Continue PPI Follow-up EGD and flexible sigmoidoscopy biopsies Monitor H&H Continue surgical, oncology, radiation oncology follow-up Seen and discussed with Dr. Frost. <Reynaldo Frost V - Last Filed: 06/29/17 23:35> Objective - Vital Signs/Intake and Output Vital Signs (last 24 hours): Temp Pulse Resp BP Pulse Ox 98.1 F 95 H 20 120/77 97 06/29/17 16:41 06/29/17 16:41 06/29/17 16:41 06/29/17 16:41 06/29/17 16:41 Intake and Output: 06/29/17 06/30/17 18:59 06:59 Intake Total 600 Balance 600 - Medications Medications: Current Medications Cyanocobalamin (Vitamin B12 1000 Mcg Tab) 1,000 mcg PO DAILY [facility] Last Admin: 06/29/17 09:04 Dose: 1,000 mcg Hydrocortisone (Anusol-Hc) 1 gm [place] BID [facility] Last Admin: 06/29/17 18:31 Dose: Not Given Sodium Chloride (Sodium Chloride 0.9%) 1,000 mls @ 100 mls/hr IV .Q10H [facility] Last Admin: 06/28/17 09:11 Dose: 100 mls/hr Pantoprazole Sodium (Protonix Inj) 40 mg IVP Q12 [facility] Last Admin: 06/29/17 21:24 Dose: 40 mg - Labs Labs: 06/29/17 14:08 06/29/17 14:08 PT 10.1 Seconds (9.9-11.8) 06/27/17 01:15 INR 0.94 (0.93-1.08) 06/27/17 01:15 APTT 29.2 Seconds (23.7-30.8) 06/27/17 01:15 Attending/Attestation - Attestation I have personally seen and examined this patient.: Yes I have fully participated in the care of the patient.: Yes I have reviewed all pertinent clinical information, including history, physical exam and plan: Yes Notes (Text): this patient was seen and evaluated here earlier. This is an addendum to the GI progress report dictated by Jennifer Bowling APN.patient still on clear liquid diet Abdomen soft no tenderness . Discussed with the . MRI scan of the pelvis has been ordered. Would consider rectal EUS to stage. Final path report is pending. Patient also has B12 deficiency etiology is unclear would request [employer] [employer] IF ab and a celiac disease profile 06/29/17 23:32
[2017-06-29] MEDS ORDERED: Potassium Chloride 20 mEq ER Tab PO ONE (19:14)
[2017-06-30 07:10] LABS: BASO # 0.02 K/mm3 (0.0-2.0); BASO % 0.5 % (0.0-3.0); EOS # 0.2 (0.0-0.7); EOS % 5.8 % (1.5-5.0); GRAN # 2.08 (1.4-6.5); GRAN % 49.9 % (50.0-68.0); HEMATOCRIT 33.2 % (42.0-52.0); LYMPH # 1.4 (1.2-3.4); LYMPH % 33.2 % (22.0-35.0); MEAN CELL VOLUME 79.2 fl (80.0-105.0); MEAN CORPUSCULAR HEMOGLOBIN 24.1 pg (25.0-35.0); MEAN CORPUSCULAR HGB CONC 30.4 g/dl (31.0-37.0); MEAN PLATELET VOLUME 9.5 fl (7.0-11.0); MONO # 0.4 (0.1-0.6); MONO % 10.6 % (1.0-6.0); WHITE BLOOD COUNT 4.2 10^3/ul (4.5-11.0)
[2017-06-30 08:16] LABS: ALB/GLOB RATIO 1.6 (1.1-1.8); ALKALINE PHOSPHATASE 59 U/L (38-126); ALT/SGPT 24 U/L (7-56); AST/SGOT 16 U/L (17-59); BILIRUBIN,TOTAL 0.4 mg/dL (0.2-1.3); BLOOD UREA NITROGEN 5 mg/dL (7-21); CALCIUM 9.2 mg/dL (8.4-10.5); CARBON DIOXIDE 23 mmol/L (21-33); CHLORIDE 108 mmol/L (98-107); GFR AFRICAN-AMERICAN > 60; GLUCOSE,RANDOM 84 mg/dL (70-110); POTASSIUM 4.1 mmol/L (3.6-5.0); SODIUM 141 mmol/L (132-148); TOTAL PROTEIN 5.9 g/dL (5.8-8.3)
[2017-06-30] MEDS ORDERED: Magnesium Citrate Oral SOL (300 ml) PO ONE (08:28)
--- NOTE | 2017-06-30 08:39 | CP.PCM.PN ---
Subjective - Date & Time of Evaluation Date of Evaluation: 06/30/17 Time of Evaluation: 08:35 - Subjective Subjective: General Surgery Progress note for Dr. Vargas PT S&E at bedside. ALONDRA. Patient reports no more episodes of blood in stool. Patient had an episode of dizziness yesterday, but currently is feeling well. Patient has no other complaints. Denies N/V, melena, hematochezia. Per GI: continue PPI, clear liquid diet, f/u EGD Bx and Flexible Sigmoidoscopy Bx, CBCs Objective - Vital Signs/Intake and Output Vital Signs (last 24 hours): Temp Pulse Resp BP Pulse Ox 98.1 F 95 H 20 120/77 97 06/29/17 16:41 06/29/17 16:41 06/29/17 16:41 06/29/17 16:41 06/29/17 16:41 Intake and Output: 06/30/17 06/30/17 06:59 18:59 Intake Total 600 Balance 600 - Medications Medications: Current Medications Cyanocobalamin (Vitamin B12 1000 Mcg Tab) 1,000 mcg PO DAILY [facility] Last Admin: 06/29/17 09:04 Dose: 1,000 mcg Hydrocortisone (Anusol-Hc) 1 gm [place] BID [facility] Last Admin: 06/29/17 18:31 Dose: Not Given Sodium Chloride (Sodium Chloride 0.9%) 1,000 mls @ 100 mls/hr IV .Q10H [facility] Last Admin: 06/28/17 09:11 Dose: 100 mls/hr Pantoprazole Sodium (Protonix Inj) 40 mg IVP Q12 [facility] Last Admin: 06/29/17 21:24 Dose: 40 mg - Labs Labs: 06/30/17 06:52 06/30/17 08:00 PT 10.1 Seconds (9.9-11.8) 06/27/17 01:15 INR 0.94 (0.93-1.08) 06/27/17 01:15 APTT 29.2 Seconds (23.7-30.8) 06/27/17 01:15 - Constitutional Appears: Non-toxic - Head Exam Head Exam: NORMAL INSPECTION - Eye Exam Eye Exam: EOMI, Normal appearance - ENT Exam ENT Exam: Mucous Membranes Moist - Neck Exam Neck Exam: Full ROM, Normal Inspection - Respiratory Exam Respiratory Exam: NORMAL BREATHING PATTERN. absent: Accessory Muscle Use, Respiratory Distress - Cardiovascular Exam Cardiovascular Exam: REGULAR RHYTHM. absent: Bradycardia, Tachycardia - GI/Abdominal Exam GI & Abdominal Exam: Soft, Normal Bowel Sounds. absent: Guarding, Tenderness, Mass, Pulsatile Mass, Rebound - Extremities Exam Extremities Exam: Full ROM - Neurological Exam Neurological Exam: Alert, Awake, Oriented x3 - Psychiatric Exam Psychiatric exam: Normal Affect, Normal Mood - Skin Skin Exam: Dry, Intact, Normal Color, Warm Assessment and Plan - Assessment and Plan (Free Text) Assessment: 46M with newly found rectal mass Plan: Diet: Clear liquid diet monitor H/Hs c/w medical management Continue PPI Follow-up EGD and flexible sigmoidoscopy biopsies Monitor H&H f/u oncology recommendations f/u GI recommendations d/w Dr. Alicia Ball, DO PGY1
[2017-06-30] MEDS: Sodium Chloride 0.9% 1,000 ML IV SCH ×2 (09:52→12:02)
[2017-06-30] MEDS: Hydrocortisone 2.5% Rectal Cream(30 gm) PR SCH ×2 (13:36→18:47)
[2017-06-30] MEDS ORDERED: Gadodiamide 287 MG/ML VIAL (15ML) IV ONE (14:55)
--- NOTE | 2017-06-30 15:46 | CP.PCM.PN ---
<Bakari Roper - Last Filed: 06/30/17 15:50> Subjective - Date & Time of Evaluation Date of Evaluation: 06/30/17 Time of Evaluation: 07:47 - Subjective Subjective: This patient was seen and examined at bedside. The patient denies anymore abdominal pain today and the patient reports having a bowel movement with no blood present. The patient denies any chest pain, shortness of breath, changes in vision, sore throat, nausea, vomiting, or any other complaints. Objective - Vital Signs/Intake and Output Vital Signs (last 24 hours): Temp Pulse Resp BP Pulse Ox 98.3 F 79 20 117/76 99 06/30/17 10:56 06/30/17 10:56 06/30/17 10:56 06/30/17 10:56 06/30/17 10:56 Intake and Output: 06/30/17 06/30/17 06:59 18:59 Intake Total 04210 Output Total 2 Balance 77207 - Medications Medications: Current Medications Cyanocobalamin (Vitamin B12 1000 Mcg Tab) 1,000 mcg PO DAILY [facility] Last Admin: 06/30/17 09:35 Dose: 1,000 mcg Hydrocortisone (Anusol-Hc) 1 gm [place] BID [facility] Last Admin: 06/30/17 13:36 Dose: Not Given Sodium Chloride (Sodium Chloride 0.9%) 1,000 mls @ 100 mls/hr IV .Q10H [facility] Last Admin: 06/30/17 12:02 Dose: 100 mls/hr Pantoprazole Sodium (Protonix Inj) 40 mg IVP Q12 [facility] Last Admin: 06/30/17 09:34 Dose: 40 mg - Labs Labs: 06/30/17 06:52 06/30/17 08:00 PT 10.1 Seconds (9.9-11.8) 06/27/17 01:15 INR 0.94 (0.93-1.08) 06/27/17 01:15 APTT 29.2 Seconds (23.7-30.8) 06/27/17 01:15 - Head Exam Head Exam: ATRAUMATIC, NORMAL INSPECTION, NORMOCEPHALIC - Eye Exam Eye Exam: EOMI, Normal appearance, PERRL Pupil Exam: NORMAL ACCOMODATION, PERRL. absent: Irregular - ENT Exam ENT Exam: Mucous Membranes Moist - Neck Exam Neck Exam: Normal Inspection - Respiratory Exam Respiratory Exam: Clear to Ausculation Bilateral, NORMAL BREATHING PATTERN. absent: Accessory Muscle Use, Chest Wall Tenderness - Cardiovascular Exam Cardiovascular Exam: REGULAR RHYTHM, RRR, +S1, +S2. absent: Rubs - GI/Abdominal Exam GI & Abdominal Exam: Soft, Normal Bowel Sounds. absent: Tenderness - Extremities Exam Extremities Exam: Full ROM, Normal Inspection - Back Exam Back Exam: NORMAL INSPECTION. absent: paraspinal tenderness - Neurological Exam Neurological Exam: Alert, Awake, CN II-XII Intact - Psychiatric Exam Psychiatric exam: Normal Affect, Normal Mood - Skin Skin Exam: Dry, Intact, Normal Color Assessment and Plan - Assessment and Plan (Free Text) Assessment: 46M with no significant PMH, admitted for lower GI bleed, anemia. Plan: Lower GI bleed: - Admit to Med Surg Obs - NPO, IVF @ 100/h, IV protonix, - Type and crossmatch 2 units prbcs - Stool guaic weakly positive in ED - HAS BLED score 0. -GI consult appreciated. -Colonoscopy showed a 8 cm rectal mass most likely ca. Heme/Onc consult is pending. -Endoscopic U/S done today for staging purposes. -MRI ordered. f/w with results. -Pathology results pending. F/u with results. Anemia: - HGb 10.1(down from 10.3), baseline unknown -Patient given 2 Unit of Venofer over the past two days. -Will continue to monitor H/H with serial CBC's. DVT PPX: Continue SCDs GI PPX:Continue Protonix IV <Brian Pack - Last Filed: 06/30/17 17:38> Objective - Vital Signs/Intake and Output Vital Signs (last 24 hours): Temp Pulse Resp BP Pulse Ox 98.3 F 79 20 115/58 L 99 06/30/17 16:00 06/30/17 16:00 06/30/17 16:00 06/30/17 16:00 06/30/17 16:00 Intake and Output: 06/30/17 06/30/17 06:59 18:59 Intake Total 09567 Output Total 2 Balance 06742 - Medications Medications: Current Medications Cyanocobalamin (Vitamin B12 1000 Mcg Tab) 1,000 mcg PO DAILY [facility] Last Admin: 06/30/17 09:35 Dose: 1,000 mcg Hydrocortisone (Anusol-Hc) 1 gm [place] BID [facility] Last Admin: 06/30/17 13:36 Dose: Not Given Sodium Chloride (Sodium Chloride 0.9%) 1,000 mls @ 100 mls/hr IV .Q10H [facility] Last Admin: 06/30/17 12:02 Dose: 100 mls/hr Pantoprazole Sodium (Protonix Inj) 40 mg IVP Q12 [facility] Last Admin: 06/30/17 09:34 Dose: 40 mg - Labs Labs: 06/30/17 06:52 06/30/17 08:00 PT 10.1 Seconds (9.9-11.8) 06/27/17 01:15 INR 0.94 (0.93-1.08) 06/27/17 01:15 APTT 29.2 Seconds (23.7-30.8) 06/27/17 01:15 Attending/Attestation - Attestation I have personally seen and examined this patient.: Yes I have fully participated in the care of the patient.: Yes I have reviewed all pertinent clinical information, including history, physical exam and plan: Yes Notes (Text): 06/30/17 17:34 attending note; Patient seen and examined with resident. Patient is a 46-year-old male admitted with melena and iron deficiency anemia. patient was also found to have B12 deficiency. s/p Colonoscopy. Flexible endoscopy/EGD done by GI Dr. Benoit. Found to have 8 cm rectal mass. adenocarcinoma. Oncology evaluation with appreciated. surgery evaluation appreciated. Case discussed with radiation oncologist Dr. Kirkland in detail. Dr. Benoit will do endoscopic ultrasound for staging. MRI ordered. Possible discharge home tomorrow with close follow-up with oncology/possible radiation oncology and surgery. The diagnosis and workup and treatment options discussed with patient in detail. 06/30/17 17:37
--- NOTE | 2017-06-30 17:50 | MRI ---
PROCEDURE: MRI of the pelvis without and with IV contrast administration. HISTORY: rectal cancer staging COMPARISON: Comparison is made to the previous CT of the abdomen and pelvis dated 06/27/2017 TECHNIQUE: Axial coronal and sagittal MRI images of the pelvis were obtained before and after IV contrast administration. FINDINGS: There is homogeneous enhancing circumferential mass lesion at the rectum approximately 5 centimeter from the anal verge. The mass measures approximately 4.1 x 2.5 centimeter and associated with moderate to severe narrowing of the rectum. There is no evidence of large bowel obstruction. The mass is extending beyond the muscularis propria ( image 25 series 3 and image 18 series 9 ). There is approximately 11 millimeter mesorectal fat in between the mass and the mesorectal fascia. Findings suggestive of T3B rectal cancer. There are mildly enlarged lymph nodes in the adjacent mesial rectal fat. There is 11 millimeter lymph node seen in the left aspect of the mesial rectal fat image 26 series 9 suspicious for local metastasis. No evidence of invasion to the adjacent structures. The prostate is slightly prominent in size measures 4.3 centimeter in the transverse diameter and 3.9 millimeter in the AP diameter. The seminal vesicles are also slightly prominent in size. The urinary bladder is grossly unremarkable. There is no evidence of destructive bony lesion. Heterogeneous bone marrow signal in the visualized osseous structures without evidence of cortical destruction. No evidence of free fluid in the pelvis. The visualized portion of the soft tissue of the pelvis is otherwise unremarkable. IMPRESSION: Approximately 4 centimeter enhancing soft tissue mass lesion at the right aspect of the distal rectum 5 -6 centimeter from the anal verge consistent with the patient's known rectal cancer. The mass extending approximately 1- 2 millimeter beyond the muscularis propria on the right aspect of the rectum. There is 11-12 millimeter mesorectal fat in between the mass and the mesorectal fascia. Findings suggestive of T3 B rectal cancer. Prominent/ slightly mildly enlarged at least 1 lymph node seen adjacent to the tumor measures 11 millimeter ( N1).
[2017-06-30] MEDS ORDERED: Lidocaine 2% Jelly (30 ml) ONE (19:22)
--- NOTE | 2017-06-30 20:29 | MRI ---
EXAM: MR Abdomen Without and With Intravenous Contrast EXAM DATE/TIME: 06/30/2017 5:06 PM CLINICAL HISTORY: 46 years old, male; Condition or disease; Cancer and other: Staging for rectal ca; Additional info: Rectal cancer staging TECHNIQUE: Multiplanar magnetic resonance images of the abdomen without and with intravenous contrast. CONTRAST: 15 mL of Omniscan administered intravenously. COMPARISON: Recent noncontrast abdominal CT of 06/27/2017 FINDINGS: LIMITATIONS: Moderate streak/motion artifact. LOWER THORAX: No evidence of pleural effusions. LIVER: Best seen on image 43 of series 1203, there is a small enhancing liver lesion measuring 8 x 6 mm. This has well-defined margins, and is located in the medial segment of the left lobe anteriorly. Its appears hypervascular. It initially has nodular enhancement, and then fills in. It has a tiny focus of low signal intensity within it centrally. It demonstrates high signal intensity on the T2-weighted images. It is not well seen on T1-weighted images, and is likely isodense to the normal liver parenchyma. No evidence of diffuse liver lesions. GALLBLADDER AND BILE DUCTS: No evidence of pericholecystic fluid. PANCREAS: No evidence of pancreatitis or definite focal pancreatic lesions. SPLEEN: No evidence of splenic lesions. ADRENALS: No evidence of adrenal masses. KIDNEYS AND URETERS: Fluid signal intensity lesion in the right kidney, most compatible with a cyst. This is located in the upper pole, measures 1.6 cm, and is mildly exophytic. STOMACH AND BOWEL: No evidence of bowel obstruction. INTRAPERITONEAL SPACE: No evidence of free fluid. LYMPH NODES: No evidence of pathologic lymphadenopathy. IMPRESSION: - Single small 8 x 6 mm hypervascular liver lesion. Most likely differential considerations include a hemangioma or focal nodular hyperplasia. A solitary hypervascular liver metastasis is considered less likely. Recommend clinical correlation and followup. - See above for remaining findings.
[2017-07-01 08:00] LABS: BASO # 0.02 K/mm3 (0.0-2.0); BASO % 0.5 % (0.0-3.0); EOS # 0.2 (0.0-0.7); EOS % 5.2 % (1.5-5.0); GRAN # 2.34 (1.4-6.5); GRAN % 52.9 % (50.0-68.0); HEMATOCRIT 33.6 % (42.0-52.0); LYMPH # 1.4 (1.2-3.4); LYMPH % 32.1 % (22.0-35.0); MEAN CORPUSCULAR HEMOGLOBIN 24.3 pg (25.0-35.0); MEAN CORPUSCULAR HGB CONC 30.4 g/dl (31.0-37.0); MEAN PLATELET VOLUME 9.7 fl (7.0-11.0); MONO # 0.4 (0.1-0.6); MONO % 9.3 % (1.0-6.0); RED CELL DISTRIBUTION WIDTH 15.1 % (11.5-14.5); WHITE BLOOD COUNT 4.4 10^3/ul (4.5-11.0)
[2017-07-01 08:06] LABS: ALB/GLOB RATIO 1.5 (1.1-1.8); ALKALINE PHOSPHATASE 59 U/L (38-126); ALT/SGPT 32 U/L (7-56); AST/SGOT 19 U/L (17-59); BILIRUBIN,TOTAL 0.5 mg/dL (0.2-1.3); BLOOD UREA NITROGEN 5 mg/dL (7-21); CALCIUM 9.1 mg/dL (8.4-10.5); CARBON DIOXIDE 26 mmol/L (21-33); CHLORIDE 106 mmol/L (98-107); GFR AFRICAN-AMERICAN > 60; GLUCOSE,RANDOM 91 mg/dL (70-110); POTASSIUM 3.9 mmol/L (3.6-5.0); SODIUM 141 mmol/L (132-148); TOTAL PROTEIN 6.3 g/dL (5.8-8.3)
[2017-07-01] MEDS: Hydrocortisone 2.5% Rectal Cream(30 gm) PR SCH ×2 (09:26→17:13)
[2017-07-01] MEDS: Sodium Chloride 0.9% 1,000 ML IV SCH ×2 (09:26→21:30)
--- NOTE | 2017-07-01 10:33 | CP.PCM.PN ---
Subjective - Date & Time of Evaluation Date of Evaluation: 07/01/17 Time of Evaluation: 10:30 - Subjective Subjective: SURGERY NOTE FOR DR. ZULUAGA 46M seen and examined at bedside. ALONDRA. Diagnosis and workup results discussed with patient. Objective - Vital Signs/Intake and Output Vital Signs (last 24 hours): Temp Pulse Resp BP Pulse Ox 97.8 F 84 20 105/72 97 07/01/17 08:50 07/01/17 08:50 07/01/17 08:50 07/01/17 08:50 07/01/17 08:50 Intake and Output: 07/01/17 07/01/17 06:59 18:59 Intake Total 1800 120 Balance 1800 120 - Medications Medications: Current Medications Cyanocobalamin (Vitamin B12 1000 Mcg Tab) 1,000 mcg PO DAILY [facility] Last Admin: 07/01/17 09:27 Dose: 1,000 mcg Hydrocortisone (Anusol-Hc) 1 gm [place] BID [facility] Last Admin: 07/01/17 09:26 Dose: 1 appful Sodium Chloride (Sodium Chloride 0.9%) 1,000 mls @ 100 mls/hr IV .Q10H [facility] Last Admin: 07/01/17 09:26 Dose: 100 mls/hr Pantoprazole Sodium (Protonix Inj) 40 mg IVP Q12 [facility] Last Admin: 07/01/17 09:26 Dose: 40 mg - Labs Labs: 07/01/17 07:40 07/01/17 07:40 PT 10.1 Seconds (9.9-11.8) 06/27/17 01:15 INR 0.94 (0.93-1.08) 06/27/17 01:15 APTT 29.2 Seconds (23.7-30.8) 06/27/17 01:15 - Constitutional Appears: Non-toxic, No Acute Distress - Respiratory Exam Respiratory Exam: Clear to Ausculation Bilateral, NORMAL BREATHING PATTERN - Cardiovascular Exam Cardiovascular Exam: REGULAR RHYTHM, +S1, +S2 - GI/Abdominal Exam GI & Abdominal Exam: Soft. absent: Distended, Firm, Guarding, Rigid, Tenderness - Neurological Exam Neurological Exam: Alert, Awake Assessment and Plan - Assessment and Plan (Free Text) Assessment: 46M with rectal cancer, Adenocarcinoma, 5-6cm from anal verge, T3bN1 Plan: - Recommend Oncology follow up for chemotherapy/radiation - Patient will need future surgical operation upon completion of XRT/Chemo therapy Discussed with Dr. Alicia Ravi, PGY2
[2017-07-01 14:49] LABS: PARIETAL CELL AB SCREEN Negative (Negative)
--- NOTE | 2017-07-01 16:33 | CP.PCM.PN ---
<Jennifer Bowling - Last Filed: 07/01/17 19:04> Subjective - Date & Time of Evaluation Date of Evaluation: 07/01/17 Time of Evaluation: 10:30 - Subjective Subjective: Seen and examined at the bedside earlier today, the chart was reviewed. Patient had rectal EUS yesterday found stage uT3, rectal biopsies revealed adenocarcinoma, moderately differentiated. He also went for abdominal MRI and pelvis MRI, reports were reviewed. Patient with no new complaints. at bedside. They are aware of findings. Gastric biopsies positive for H. pylori, endoscopy biopsy pathology reviewed. Objective - Vital Signs/Intake and Output Vital Signs (last 24 hours): Temp Pulse Resp BP Pulse Ox 97.8 F 84 20 105/72 97 07/01/17 08:50 07/01/17 08:50 07/01/17 08:50 07/01/17 08:50 07/01/17 08:50 Intake and Output: 07/01/17 07/01/17 06:59 18:59 Intake Total 1800 480 Balance 1800 480 - Medications Medications: Current Medications Cyanocobalamin (Vitamin B12 1000 Mcg Tab) 1,000 mcg PO DAILY [facility] Last Admin: 07/01/17 09:27 Dose: 1,000 mcg Hydrocortisone (Anusol-Hc) 1 gm [place] BID [facility] Last Admin: 07/01/17 09:26 Dose: 1 appful Sodium Chloride (Sodium Chloride 0.9%) 1,000 mls @ 100 mls/hr IV .Q10H [facility] Last Admin: 07/01/17 09:26 Dose: 100 mls/hr Pantoprazole Sodium (Protonix Inj) 40 mg IVP Q12 [facility] Last Admin: 07/01/17 09:26 Dose: 40 mg - Labs Labs: 07/01/17 07:40 07/01/17 07:40 PT 10.1 Seconds (9.9-11.8) 06/27/17 01:15 INR 0.94 (0.93-1.08) 06/27/17 01:15 APTT 29.2 Seconds (23.7-30.8) 06/27/17 01:15 - Constitutional Appears: No Acute Distress - Head Exam Head Exam: NORMOCEPHALIC - Eye Exam Eye Exam: Normal appearance. absent: Scleral icterus - ENT Exam ENT Exam: Mucous Membranes Moist - Neck Exam Neck Exam: Normal Inspection - Respiratory Exam Respiratory Exam: Clear to Ausculation Bilateral, NORMAL BREATHING PATTERN. absent: Respiratory Distress - Cardiovascular Exam Cardiovascular Exam: +S1, +S2 - GI/Abdominal Exam GI & Abdominal Exam: Soft, Hyperactive Bowel Sounds. absent: Guarding, Tenderness, Rebound - Extremities Exam Extremities Exam: Normal Capillary Refill. absent: Calf Tenderness, Pedal Edema - Neurological Exam Neurological Exam: Alert, Awake, Oriented x3 - Skin Skin Exam: Dry, Warm Assessment and Plan - Assessment and Plan (Free Text) Assessment: Assessment: Rectal adenocarcinoma, moderately differentiated H pylori gastritis Vitamin B12 deficiency Plan: Clear liquid diet Continue PPI can consider treating Hpylori electively likely plan is surgical intervention after radiation and chemotherapy as per surgical, oncology, radiation oncology team Seen and discussed with Dr. Frost. <Reynaldo Frost V - Last Filed: 07/01/17 22:56> Objective - Vital Signs/Intake and Output Vital Signs (last 24 hours): Temp Pulse Resp BP Pulse Ox 98.5 F 87 20 119/75 98 07/01/17 17:00 07/01/17 17:00 07/01/17 17:00 07/01/17 17:00 07/01/17 17:00 Intake and Output: 07/01/17 07/02/17 18:59 06:59 Intake Total 480 1820 Balance 480 1820 - Medications Medications: Current Medications Cyanocobalamin (Vitamin B12 1000 Mcg Tab) 1,000 mcg PO DAILY [facility] Last Admin: 07/01/17 09:27 Dose: 1,000 mcg Hydrocortisone (Anusol-Hc) 1 gm [place] BID [facility] Last Admin: 07/01/17 17:13 Dose: 1 appful Sodium Chloride (Sodium Chloride 0.9%) 1,000 mls @ 100 mls/hr IV .Q10H [facility] Last Admin: 07/01/17 09:26 Dose: 100 mls/hr Pantoprazole Sodium (Protonix Inj) 40 mg IVP Q12 [facility] Last Admin: 07/01/17 21:50 Dose: 40 mg - Labs Labs: 07/01/17 07:40 07/01/17 07:40 PT 10.1 Seconds (9.9-11.8) 06/27/17 01:15 INR 0.94 (0.93-1.08) 06/27/17 01:15 APTT 29.2 Seconds (23.7-30.8) 06/27/17 01:15 Attending/Attestation - Attestation I have personally seen and examined this patient.: Yes I have fully participated in the care of the patient.: Yes I have reviewed all pertinent clinical information, including history, physical exam and plan: Yes Notes (Text): This is an addendum to GI progress report dictated by Jennifer Bowling APN.The patient was seen and examined earlier. Medical records, lab studies, imagings were reviewed. Last 24 hours events reviewed. Agreed with the above treatment plan as outlined in Jennifer Bowling NP's notes the with the addition of the following patient still on a clear liquid diet Abdomen soft no tenderness EUS revealed a T3 lesion Plan Radiation chemotherapy followed by surgery Selective treatment for H. pylori Patient has near obstructing symptoms would cautiously avoid the diet with stool softeners hopefully the rectal lumen opens up following radiation chemotherapy Diet has been increased to full liquid diet. Consider increasing to low residue diet with stool softeners should the patient develop obstruction would be needed colostomy 07/01/17 22:53
--- NOTE | 2017-07-02 01:30 | CP.PCM.PN ---
Subjective - Date & Time of Evaluation Date of Evaluation: 07/01/17 Time of Evaluation: 16:00 - Subjective Subjective: No complaints. Objective - Vital Signs/Intake and Output Vital Signs (last 24 hours): Temp Pulse Resp BP Pulse Ox 98.5 F 87 20 119/75 98 07/01/17 17:00 07/01/17 17:00 07/01/17 17:00 07/01/17 17:00 07/01/17 17:00 Intake and Output: 07/01/17 07/02/17 18:59 06:59 Intake Total 480 1820 Balance 480 1820 - Medications Medications: Current Medications Cyanocobalamin (Vitamin B12 1000 Mcg Tab) 1,000 mcg PO DAILY [facility] Last Admin: 07/01/17 09:27 Dose: 1,000 mcg Hydrocortisone (Anusol-Hc) [address] BID [facility] Last Admin: 07/01/17 17:13 Dose: 1 appful Sodium Chloride (Sodium Chloride 0.9%) 1,000 mls @ 100 mls/hr IV .Q10H [facility] Last Admin: 07/01/17 09:26 Dose: 100 mls/hr Pantoprazole Sodium (Protonix Inj) 40 mg IVP Q12 [facility] Last Admin: 07/01/17 21:50 Dose: 40 mg - Labs Labs: 07/01/17 07:40 07/01/17 07:40 PT 10.1 Seconds (9.9-11.8) 06/27/17 01:15 INR 0.94 (0.93-1.08) 06/27/17 01:15 APTT 29.2 Seconds (23.7-30.8) 06/27/17 01:15 - Head Exam Head Exam: ATRAUMATIC - Eye Exam Eye Exam: Normal appearance - ENT Exam ENT Exam: Mucous Membranes Dry - Respiratory Exam Respiratory Exam: NORMAL BREATHING PATTERN - Cardiovascular Exam Cardiovascular Exam: +S1, +S2 - GI/Abdominal Exam GI & Abdominal Exam: Normal Bowel Sounds - Extremities Exam Extremities Exam: Normal Inspection Assessment and Plan (1) Anemia Assessment & Plan: iron and b12 deficiency on IV Venofer Status: Acute (2) Rectal mass Assessment & Plan: T3N1 by MRI would benefit from outpatient neoadjuvant chemoradiation prior to surgery outpatient f/u with me to initiate Xeloda Status: Acute
[2017-07-02 08:26] VITALS: BP 111/75; PULSE 84; RESP 18; TEMP 97.3; O2SAT 100
--- NOTE | 2017-07-02 08:36 | CP.PCM.PN ---
Subjective - Date & Time of Evaluation Date of Evaluation: 07/02/17 Time of Evaluation: 08:33 - Subjective Subjective: General Surgery Progress note for Dr. Vargas PT S&E at bedside. Patient states he would like to go home today. No complaints overnight. Patient is still on Clear liquid diet. Patient tolerating well. Patient denies F/C, N/V. Objective - Vital Signs/Intake and Output Vital Signs (last 24 hours): Temp Pulse Resp BP Pulse Ox 97.3 F L 84 18 111/75 100 07/02/17 08:25 07/02/17 08:25 07/02/17 08:25 07/02/17 08:25 07/02/17 08:25 Intake and Output: 07/02/17 07/02/17 06:59 18:59 Intake Total 1820 820 Balance 1820 820 - Medications Medications: Current Medications Cyanocobalamin (Vitamin B12 1000 Mcg Tab) 1,000 mcg PO DAILY [facility] Last Admin: 07/01/17 09:27 Dose: 1,000 mcg Hydrocortisone (Anusol-Hc) 1 gm MD BID [facility] Last Admin: 07/01/17 17:13 Dose: 1 appful Sodium Chloride (Sodium Chloride 0.9%) 1,000 mls @ 100 mls/hr IV .Q10H [facility] Last Admin: 07/01/17 21:30 Dose: 100 mls/hr Iron Sucrose 200 mg/ Sodium (Chloride) 110 mls @ 110 mls/hr IVPB ONCE ONE Stop: 07/02/17 10:59 Pantoprazole Sodium (Protonix Inj) 40 mg IVP Q12 [facility] Last Admin: 07/01/17 21:50 Dose: 40 mg - Labs Labs: 07/01/17 07:40 07/01/17 07:40 PT 10.1 Seconds (9.9-11.8) 06/27/17 01:15 INR 0.94 (0.93-1.08) 06/27/17 01:15 APTT 29.2 Seconds (23.7-30.8) 06/27/17 01:15 - Constitutional Appears: No Acute Distress - Head Exam Head Exam: NORMAL INSPECTION - Eye Exam Eye Exam: EOMI, Normal appearance - ENT Exam ENT Exam: Mucous Membranes Moist - Neck Exam Neck Exam: Full ROM - Respiratory Exam Respiratory Exam: Clear to Ausculation Bilateral. absent: Accessory Muscle Use , Respiratory Distress - Cardiovascular Exam Cardiovascular Exam: REGULAR RHYTHM. absent: Bradycardia, Tachycardia - GI/Abdominal Exam GI & Abdominal Exam: Soft, Normal Bowel Sounds. absent: Tenderness - Extremities Exam Extremities Exam: Full ROM, Normal Inspection. absent: Pedal Edema - Neurological Exam Neurological Exam: Alert, Awake, Normal Gait - Psychiatric Exam Psychiatric exam: Normal Affect, Normal Mood - Skin Skin Exam: Dry, Intact, Normal Color, Warm Assessment and Plan - Assessment and Plan (Free Text) Assessment: 46M with rectal cancer, Adenocarcinoma, 5-6cm from anal verge, T3bN1 Plan: recommend Oncology follow up for chemotherapy/radiation consider surgical operation in the future to resect the adenocarcinoma after completing Chemo/XRT d/w Dr. Alicia Ball, DO PGY1
[2017-07-02 09:02] LABS: BASO # 0.02 K/mm3 (0.0-2.0); BASO % 0.5 % (0.0-3.0); EOS # 0.2 (0.0-0.7); EOS % 3.7 % (1.5-5.0); GRAN # 2.53 (1.4-6.5); GRAN % 61.9 % (50.0-68.0); HEMATOCRIT 35.9 % (42.0-52.0); LYMPH # 1.1 (1.2-3.4); LYMPH % 27.1 % (22.0-35.0); MEAN CELL VOLUME 80.1 fl (80.0-105.0); MEAN CORPUSCULAR HEMOGLOBIN 24.3 pg (25.0-35.0); MEAN CORPUSCULAR HGB CONC 30.4 g/dl (31.0-37.0); MEAN PLATELET VOLUME 9.8 fl (7.0-11.0); MONO # 0.3 (0.1-0.6); MONO % 6.8 % (1.0-6.0); RED CELL DISTRIBUTION WIDTH 15.8 % (11.5-14.5); WHITE BLOOD COUNT 4.1 10^3/ul (4.5-11.0)
[2017-07-02 09:07] LABS: ALB/GLOB RATIO 1.6 (1.1-1.8); ALKALINE PHOSPHATASE 62 U/L (38-126); ALT/SGPT 33 U/L (7-56); AST/SGOT 19 U/L (17-59); BILIRUBIN,TOTAL 0.5 mg/dL (0.2-1.3); BLOOD UREA NITROGEN 6 mg/dL (7-21); CALCIUM 9.5 mg/dL (8.4-10.5); CARBON DIOXIDE 26 mmol/L (21-33); CHLORIDE 106 mmol/L (98-107); GFR AFRICAN-AMERICAN > 60; GLUCOSE,RANDOM 96 mg/dL (70-110); POTASSIUM 4.2 mmol/L (3.6-5.0); SODIUM 142 mmol/L (132-148)
[2017-07-02] MEDS: Hydrocortisone 2.5% Rectal Cream(30 gm) PR SCH (10:10)
[2017-07-02] MEDS ORDERED: POLYETHYLENE GLYCOL 3350 17 GM/Dose PACKET PO SCH (13:30)
--- NOTE | 2017-07-02 13:35 | CP.PCM.PN ---
Subjective - Date & Time of Evaluation Date of Evaluation: 07/02/17 Time of Evaluation: 10:35 - Subjective Subjective: Seen and examined at the bedside earlier today, the was there, patient denies any recent bleeding per rectum or abdominal pain. Tolerating the full liquid diet, denies nausea, vomiting, fever, chills or shortness of breath. No new complaints. Patient has not had BM since colonoscopy. Objective - Vital Signs/Intake and Output Vital Signs (last 24 hours): Temp Pulse Resp BP Pulse Ox 97.3 F L 84 18 111/75 100 07/02/17 08:25 07/02/17 08:25 07/02/17 08:25 07/02/17 08:25 07/02/17 08:25 Intake and Output: 07/02/17 07/02/17 06:59 18:59 Intake Total 1820 820 Balance 1820 820 - Medications Medications: Current Medications Cyanocobalamin (Vitamin B12 1000 Mcg Tab) 1,000 mcg PO DAILY [facility] Last Admin: 07/02/17 10:14 Dose: 1,000 mcg Hydrocortisone (Anusol-Hc) 1 gm MS BID [facility] Last Admin: 07/02/17 10:10 Dose: 1 appful Sodium Chloride (Sodium Chloride 0.9%) 1,000 mls @ 100 mls/hr IV .Q10H [facility] Last Admin: 07/01/17 21:30 Dose: 100 mls/hr Pantoprazole Sodium (Protonix Inj) 40 mg IVP Q12 [facility] Last Admin: 07/02/17 10:10 Dose: 40 mg - Labs Labs: 07/02/17 08:49 07/02/17 08:49 PT 10.1 Seconds (9.9-11.8) 06/27/17 01:15 INR 0.94 (0.93-1.08) 06/27/17 01:15 APTT 29.2 Seconds (23.7-30.8) 06/27/17 01:15 - Constitutional Appears: No Acute Distress - Head Exam Head Exam: NORMOCEPHALIC - Eye Exam Eye Exam: Normal appearance. absent: Scleral icterus - ENT Exam ENT Exam: Mucous Membranes Moist - Neck Exam Neck Exam: Normal Inspection - Respiratory Exam Respiratory Exam: Clear to Ausculation Bilateral, NORMAL BREATHING PATTERN. absent: Respiratory Distress - Cardiovascular Exam Cardiovascular Exam: +S1, +S2 - GI/Abdominal Exam GI & Abdominal Exam: Soft, Normal Bowel Sounds. absent: Guarding, Tenderness, Rebound - Extremities Exam Extremities Exam: Normal Capillary Refill. absent: Calf Tenderness, Pedal Edema - Neurological Exam Neurological Exam: Alert, Awake, Oriented x3 Assessment and Plan - Assessment and Plan (Free Text) Assessment: Assessment: Rectal adenocarcinoma, moderately differentiated H pylori gastritis Vitamin B12 deficiency 8 x 6 mm hypervascular liver lesion, differential hemangioma or focal nodular hyperplasia Plan: advance diet to soft low residual Give MiraLAX daily Continue PPI can consider treating Hpylori electively patient for outpatient chemotherapy and radiation, surgical intervention posttreatment, as per oncology, radiation and surgical team Seen and discussed with Dr. Frost.
[2017-07-02] MEDS: Sodium Chloride 0.9% 1,000 ML IV SCH (14:57)
--- NOTE | 2017-07-02 15:32 | CP.PCM.DIS ---
Provider - Provider Date of Admission: 06/29/17 10:19 Attending physician: Brian Pack MD Time Spent in preparation of Discharge (in minutes): 40 Hospital Course - Lab Results Lab Results: Most Recent Lab Values WBC 4.1 10^3/ul (4.5-11.0) L 07/02/17 08:49 RBC 4.48 10^6/uL (3.5-6.1) 07/02/17 08:49 Hgb 10.9 g/dL (14.0-18.0) L 07/02/17 08:49 Hct 35.9 % (42.0-52.0) L 07/02/17 08:49 MCV 80.1 fl (80.0-105.0) 07/02/17 08:49 MCH 24.3 pg (25.0-35.0) L 07/02/17 08:49 MCHC 30.4 g/dl (31.0-37.0) L 07/02/17 08:49 RDW 15.8 % (11.5-14.5) H 07/02/17 08:49 Plt Count 260 10^3/uL (120.0-450.0) 07/02/17 08:49 MPV 9.8 fl (7.0-11.0) 07/02/17 08:49 Gran % 61.9 % (50.0-68.0) 07/02/17 08:49 Lymph % (Auto) 27.1 % (22.0-35.0) 07/02/17 08:49 Roosevelt % (Auto) 6.8 % (1.0-6.0) H 07/02/17 08:49 Eos % (Auto) 3.7 % (1.5-5.0) 07/02/17 08:49 Baso % (Auto) 0.5 % (0.0-3.0) 07/02/17 08:49 Gran # 2.53 (1.4-6.5) 07/02/17 08:49 Lymph # 1.1 (1.2-3.4) L 07/02/17 08:49 Roosevelt # 0.3 (0.1-0.6) 07/02/17 08:49 Eos # 0.2 (0.0-0.7) 07/02/17 08:49 Baso # 0.02 K/mm3 (0.0-2.0) 07/02/17 08:49 PT 10.1 Seconds (9.9-11.8) 06/27/17 01:15 INR 0.94 (0.93-1.08) 06/27/17 01:15 APTT 29.2 Seconds (23.7-30.8) 06/27/17 01:15 Sodium 142 mmol/L (132-148) 07/02/17 08:49 Potassium 4.2 mmol/L (3.6-5.0) 07/02/17 08:49 Chloride 106 mmol/L (98-107) 07/02/17 08:49 Carbon Dioxide 26 mmol/L (21-33) 07/02/17 08:49 Anion Gap 14 (10-20) 07/02/17 08:49 BUN 6 mg/dL (7-21) L 07/02/17 08:49 Creatinine 0.9 mg/dL (0.5-1.4) 07/02/17 08:49 Est GFR ( Amer) > 60 07/02/17 08:49 Est GFR (Non-Af Amer) > 60 07/02/17 08:49 POC Glucose (mg/dL) 186 mg/dL (65-110) H 06/29/17 10:26 Random Glucose 96 mg/dL (70-110) 07/02/17 08:49 Calcium 9.5 mg/dL (8.4-10.5) 07/02/17 08:49 Iron 26 ug/dL (45-180) L 06/27/17 05:00 TIBC 446 ug/dL (261-462) 06/27/17 05:00 % Saturation 6 % (20-55) L 06/27/17 05:00 Ferritin 5.1 ng/mL 06/27/17 05:00 Total Bilirubin 0.5 mg/dL (0.2-1.3) 07/02/17 08:49 AST 19 U/L (17-59) 07/02/17 08:49 ALT 33 U/L (7-56) 07/02/17 08:49 Alkaline Phosphatase 62 U/L (38-126) 07/02/17 08:49 Total Protein 7.0 g/dL (5.8-8.3) 07/02/17 08:49 Albumin 4.3 g/dL (3.0-4.8) 07/02/17 08:49 Globulin 2.7 gm/dL 07/02/17 08:49 Albumin/Globulin Ratio 1.6 (1.1-1.8) 07/02/17 08:49 Lipase 173 U/L (23-300) 06/27/17 01:15 Vitamin B12 174 pg/mL (239-931) L 06/27/17 05:00 Folate 11.2 ng/mL 06/27/17 05:00 Anti-Parietal Cell Ab Negative (Negative) 06/30/17 06:00 Blood Type A POSITIVE 06/27/17 03:49 Blood Type Confirm A POSITIVE 06/27/17 05:00 Antibody Screen Negative 06/27/17 03:49 Crossmatch See Detail 06/27/17 03:49 BBK History Checked Patient has bt 06/27/17 03:49 - Hospital Course Hospital Course: Pt is a 46 year old M with no significant PMH who presented for hematochezia x 1 week. He reported intermittent episodes of constipation, straining, and painless BRBPR over the past year, however, frequency had increased recently. He also reported some associated weakness, but no abdominal pain, rectal pain, N /V/D, dizziness, chest pain, SOB, neck pain, headache, urinary symptoms, or leg swelling. He was found to be anemic in the ED (Hgb 10.8), FOBT (+), was started on fluids and protonix, and was admitted for anemia workup. During his admission, pt had Fe studies, hematologic and chemistry labs, was given multiple units of IV iron, Vit B12 and Hgb remained stable (~10-11). He was seen by GI team who did a colonoscopy that showed a partially obstructing malignant tumor. Consults were placed to surgery, hemonc, and radiation oncology teams. Biopsies revealed adenocarcinoma. Pt had a CT of the chest which showed no lung metastasis, an abdominal MRI which showed a single liver lesion, and he also a pelvic MRI and EUS for staging (stage T3B rectal cancer). Multiple discussions were made with the patient, family, and consultants. The current plan is to have outpatient adjuvant chemotherapy prior to surgical resection. Patient was informed of the plan and expresses understanding. Patient was given Referral for Dr. Denis to follow up within one week. The patient was also given the appointment number for [facility] to make an appointment within one week of discharge. Patient was also given referral to a Surgeon. Prior to discharge, patient reports feeling better. He has not had additional rectal bleeds in the hospital, and has been tolerating a PO diet. He denies fevers, chills, chest pain, palpitations, abdominal pain, headache, or any other focal complaints at this time. Discharge Exam - Head Exam Head Exam: NORMOCEPHALIC Discharge Plan - Discharge Medications Prescriptions: Ferrous Sulfate 325 mg PO BID #60 tablet - Follow Up Plan Condition: GOOD Disposition: HOME/ ROUTINE Instructions: Lower Gastrointestinal Endoscopic Ultrasonography (GEN) Additional Instructions: Follow up with Primary care doctor in 3-5 days. Follow up with Dr. Denis within one week of discharge. Follow up with Dr. Vargas within one week of discharge. Advised patient to call the [facility] and set up an appointment for next week. Patient understood and agreed to call on Wednesday. Advised patient to return to E.D. for any new or worsening symptoms. Referrals: [facility] [Provider Group] Corbin Vargas MD [Staff Provider] - Jake Denis MD [Staff Provider] -
[2017-07-03 04:58] LABS: INTRINSIC FACTOR BLOCK AB Negative (Negative)
== END 2017-07-02 17:09 | disposition home or self-care (01) | DRG 172 ==
LOC: ED 00:22 → ERH 02:47 → 3RSO 03:54 → OBSVTOIN 06-29 10:19
PROVIDERS: ADMIT Internal Medicine; ATTEND Internal Medicine
PROC: 0DB68ZX Excision of Stomach, Via Natural or Artificial Opening Endoscopic, Diagnostic (ICD-10-PCS; 2017-06-28)
PROC: 0DBP8ZX Excision of Rectum, Via Natural or Artificial Opening Endoscopic, Diagnostic (ICD-10-PCS; principal; 2017-06-28 14:00)
PROC: 0DB98ZX Excision of Duodenum, Via Natural or Artificial Opening Endoscopic, Diagnostic (ICD-10-PCS; 2017-06-28 14:00)
PROC: 0DJD8ZZ Inspection of Lower Intestinal Tract, Via Natural or Artificial Opening Endoscopic (ICD-10-PCS; 2017-06-30)
PROC: BD4CZZZ Ultrasonography of Rectum (ICD-10-PCS; 2017-06-30)
DX: C20 Malignant neoplasm of rectum (principal); E53.8 Deficiency of other specified B group vitamins; D50.9 Iron deficiency anemia, unspecified; K59.00 Constipation, unspecified; K29.50 Unspecified chronic gastritis without bleeding; B96.81 Helicobacter pylori [H. pylori] as the cause of diseases classified elsewhere; K64.0 First degree hemorrhoids